=== PATIENT | female | born 1960 | race African-American/Black ===

== ENCOUNTER 2018-06-11 14:23 | Emergency (ER) | payer OTHER ==
--- NOTE | 2018-06-11 16:26 | RAD REPORT ---
EXAM DESCRIPTION: RAD - Lumbar Spine 3 Views - 06/11/2018 4:03 pm CLINICAL HISTORY: PAIN Radiculopathy COMPARISON: No comparisons FINDINGS: Vertebral body heights appear maintained. No compression fracture noted. Disc spaces are m aintained. Minimal degenerative anterolisthesis of L4 on 5 is noted. Facet hypertrophy is present inv olving the lower lumbar levels. IMPRESSION: No acute finding is demonstrated. Mild lower lumbar spondylosis.
--- NOTE | 2018-06-11 16:36 | RAD REPORT ---
EXAM DESCRIPTION: US - Extremity Venous Uni Ltd - 06/11/2018 4:31 pm CLINICAL HISTORY: PAIN Leg swelling and edema. COMPARISON: No comparisons FINDINGS: Right lower extremity venous system was interrogated with Doppler technique. Normal flow, compressibility and augmentation was noted. There is no DVT present. IMPRESSION: No evidence of right lower extremity deep venous thrombosis.
--- NOTE | 2018-06-11 16:40 | EDPHYS ---
Physician Documentation [facility] Name: Thais Coe Age: 58 yrs Sex: Female : 1960 Arrival Date: 06/11/2018 Time: 14:26 Bed Treatment Private MD: Juan Gee H ED Physician Rodolfo Bravo HPI: 06/11 15:38 This 58 yrs old Black Female presents to ER via Ambulatory with complaints of Leg Pain. cp 15:38 The patient presents with pain, tenderness. The complaints affect the right leg. cp 15:38 Onset: The symptoms/episode began/occurred 3 week(s) ago. cp 15:38 Associated signs and symptoms: Pertinent positives: low back pain, Pertinent negatives cp fever, numbness, warmth, weakness. Severity of symptoms: in the emergency department the symptoms are unchanged, despite home interventions. The patient has been recently seen by a physician: Dr. Gee with similar presenting complaints, given RX for muscle relaxer. Historical: - Allergies: 15:03 No Known Allergies; sg - Home Meds: 15:03 unknown high blood pressure medication [Active]; sg - PMHx: 15:03 Hypertension; sg - PSHx: 15:03 None; sg - Immunization history:: Adult Immunizations up to date. - Social history:: Smoking status: Patient/guardian denies using tobacco. - Ebola Screening: : Patient negative for fever greater than or equal to 101.5 degrees Fahrenheit, and additional compatible Ebola Virus Disease symptoms Patient denies exposure to infectious person Patient denies travel to an Ebola-affected area in the 21 days before illness onset No symptoms or risks identified at this time. ROS: 15:45 Constitutional: Negative for body aches, chills, fever, poor PO intake. cp 15:45 Eyes: Negative for injury, pain, redness, and discharge. cp 15:45 Neck: Negative for pain with movement, pain at rest, stiffness, tenderness. 15:45 Cardiovascular: Negative for chest pain. 15:45 Respiratory: Negative for cough, wheezing. 15:45 Abdomen/GI: Negative for abdominal pain, nausea, vomiting, and diarrhea, constipation, black/tarry stool, rectal bleeding. 15:45 Back: Positive for pain at rest, pain with movement, of the lumbar area and right low back, Negative for injury or acute deformity, decreased range of motion. 15:45 MS/extremity: Positive for pain, tenderness, of the right leg, Negative for injury or acute deformity, decreased range of motion, paresthesias. 15:45 Skin: Negative for cellulitis, rash. 15:45 Neuro: Negative for dizziness, headache, numbness, tingling, weakness. 15:45 All other systems are negative. Exam: 15:52 Constitutional: The patient appears in no acute distress, alert, awake, cp non-diaphoretic, non-toxic, well developed, well nourished, overweight 15:52 Head/Face: Normocephalic, atraumatic. cp 15:52 Eyes: Periorbital structures: appear normal, Conjunctiva: normal, no exudate, no injection, Sclera: no appreciated abnormality, Lids and lashes: appear normal, bilaterally. 15:52 ENT: External ear(s): are unremarkable, Nose: is normal, Mouth: is normal, Posterior pharynx: is normal, airway is patent, no erythema, no exudate, Voice: is normal. 15:52 Neck: ROM/movement: is normal, is supple, without pain, no range of motions limitations, no nuchal rigidity. 15:52 Chest/axilla: Inspection: normal, Palpation: is normal, no crepitus, no tenderness. 15:52 Cardiovascular: Rate: normal, Rhythm: regular, Edema: is not appreciated. 15:52 Respiratory: the patient does not display signs of respiratory distress, Respirations: normal, no use of accessory muscles, no retractions, no splinting, no tachypnea. 15:52 Abdomen/GI: Exam negative for discomfort, distension, guarding, Inspection: obese 15:52 Back: pain, that is moderate, of the lumbar area and right low back, Straight leg raises: of both lower extremities does not illicit pain. 15:52 Skin: cellulitis, is not appreciated, no rash present. 15:52 Neuro: Orientation: to person, place \T\ time. Mentation: is normal, Motor: moves all fours, strength is normal, Sensation: no obvious gross deficits, Gait: is steady, Deep tendon reflexes are 2+ (normal) in the right patellar, right Achilles, left patellar and left Achilles. Vital Signs: 15:03 BP 157 / 94; Pulse 89; Resp 18; Temp 97.7; Pulse Ox 100% ; Weight 99.79 kg (R); Height sg 5 ft. 6 in. (167.64 cm); Pain 4/10; 15:03 Body Mass Index 35.51 (99.79 kg, 167.64 cm) sg MDM: 15:19 Patient medically screened. cp 15:45 Differential diagnosis: sciatica, spinal stenosis, bulging disc, cauda equina. cp 16:40 Data reviewed: vital signs, nurses notes, radiologic studies, plain films, ultrasound. cp 16:40 Test interpretation: by ED physician or midlevel provider: plain radiologic studies. cp Counseling: I had a detailed discussion with the patient and/or guardian regarding: the historical points, exam findings, and any diagnostic results supporting the discharge/admit diagnosis, radiology results, the need for outpatient follow up, a family practitioner, to return to the emergency department if symptoms worsen or persist or if there are any questions or concerns that arise at home. Response to treatment: the patient's symptoms have mildly improved after treatment, and as a result, I will discharge patient. 06/11 15:34 Order name: Lumbar Spine (3 Views) XRAY; Complete Time: 16:39 cp 06/11 15:34 Order name: US Extremity Venous Unilateral Ltd; Complete Time: 16:39 cp 06/11 16:39 Interpretation: Report reviewed. cp Administered Medications: 16:54 Drug: TORadol 60 mg Route: IM; Site: left gluteus; iw Disposition: 18:36 Co-signature as Attending Physician, Rodolfo Bravo MD. Disposition: 06/11/18 16:40 Discharged to Home. Impression: Low back pain, Radiculopathy, lumbar region. - Condition is Stable. - Discharge Instructions: Back Pain, Adult, Lumbosacral Radiculopathy. - Prescriptions for Ultracet 37.5- 325 mg Oral Tablet - take 1 tablet by ORAL route every 6 hours - for up to 5 days; do not exceed 8 tablets per day. no driving while taking medication; 20 tablet. Medrol (Enmanuel) 4 mg Oral Tablets, Dose Pack - take 1 tablet by ORAL route as directed - follow package instructions; 1 packet. - Medication Reconciliation Form, Thank You Letter, Antibiotic Education, Prescription Opioid Use form. - Follow up: Gee, Svetlana-Jason, DO; When: 2 - 3 days; Reason: Recheck today's complaints. - Problem is an ongoing problem. - Symptoms have improved. Signatures: Dispatcher [employer] EDMS Roderick Sarabia RN RN sg Vicky Gabriel RN RN iw Werner Perez PA PA cp Leal, Jahala, RN RN jl7 Rodolfo Bravo MD MD gs Corrections: (The following items were deleted from the chart) 16:47 15:34 Urine Dipstick-Ancillary ordered. [facility] 16:47 15:34 Urine Test ordered. [facility] 17:03 16:40 06/11/2018 16:40 Discharged to Home. Impression: Low back pain; Radiculopathy, jl7 lumbar region. Condition is Stable. Forms are Medication Reconciliation Form, Thank You Letter, Antibiotic Education, Prescription Opioid Use. Follow up: Juan Gee; When: 2 - 3 days; Reason: Recheck today's complaints. Problem is an ongoing problem. Symptoms have improved. cp
--- NOTE | 2018-06-11 16:40 | ER ---
Nurse's Notes [facility] Name: Thais Coe Age: 58 yrs Sex: Female : 1960 Arrival Date: 06/11/2018 Time: 14:26 Bed Treatment Private MD: Juan Gee H Diagnosis: Low back pain;Radiculopathy, lumbar region Presentation: 06/11 15:01 Presenting complaint: Patient states: Right side arm and leg stiffening, denies sg fall/injury to the area. pt reports seeing and given a prescription for muscle relaxers but no relief. Transition of care: patient was not received from another setting of care. Onset of symptoms was June 11, 2018. Risk Assessment: Do you want to hurt yourself or someone else? Patient reports no desire to harm self or others. Care prior to arrival: None. 15:01 Method Of Arrival: Ambulatory sg 15:01 Acuity: KIMBERLEE 4 sg 15:15 Initial Sepsis Screen: Does the patient meet any 2 criteria? No. Patient's initial iw sepsis screen is negative. Does the patient have a suspected source of infection? No. Patient's initial sepsis screen is negative. Triage Assessment: 16:00 General: Appears in no apparent distress. Behavior is calm, cooperative. iw Historical: - Allergies: 15:03 No Known Allergies; sg - Home Meds: 15:03 unknown high blood pressure medication [Active]; sg - PMHx: 15:03 Hypertension; sg - PSHx: 15:03 None; sg - Immunization history:: Adult Immunizations up to date. - Social history:: Smoking status: Patient/guardian denies using tobacco. - Ebola Screening: : Patient negative for fever greater than or equal to 101.5 degrees Fahrenheit, and additional compatible Ebola Virus Disease symptoms Patient denies exposure to infectious person Patient denies travel to an Ebola-affected area in the 21 days before illness onset No symptoms or risks identified at this time. Screenin:15 Abuse screen: Denies threats or abuse. Denies injuries from another. Nutritional iw screening: No deficits noted. Tuberculosis screening: No symptoms or risk factors identified. Fall Risk None identified. Assessment: 16:00 General: Appears in no apparent distress. comfortable, Behavior is calm, cooperative. iw Pain: Complains of pain in right leg. Neuro: Level of Consciousness is awake, alert, obeys commands, Oriented to person, place, time, Moves all extremities. Full function. Cardiovascular: Patient's skin is warm and dry. Respiratory: Respiratory effort is even, unlabored, Respiratory pattern is regular, symmetrical. GI: No signs and/or symptoms were reported involving the gastrointestinal system. Derm: Skin is intact, is healthy with good turgor. Musculoskeletal: Range of motion: intact in all extremities, Reports pain in right leg. Vital Signs: 15:03 BP 157 / 94; Pulse 89; Resp 18; Temp 97.7; Pulse Ox 100% ; Weight 99.79 kg (R); Height sg 5 ft. 6 in. (167.64 cm); Pain 4/10; 15:03 Body Mass Index 35.51 (99.79 kg, 167.64 cm) sg ED Course: 14:26 Patient arrived in ED. rg4 14:26 Juan Gee DO is Private Physician. rg4 15:02 Triage completed. sg 15:02 Arm band placed on. sg 15:05 Vicky Gabriel, JANNIE is Primary Nurse. iw 15:18 Werner Perez PA is PHCP. cp 15:18 Rodolfo Bravo MD is Attending Physician. cp 16:00 X-ray completed. Patient tolerated procedure well. tm4 16:01 Lumbar Spine (3 Views) XRAY In Process Unspecified. EDMS 16:15 Patient has correct armband on for positive identification. iw 16:29 Ultrasound completed. Patient tolerated well. sg3 16:31 US Extremity Venous Unilateral Ltd In Process Unspecified. EDMS 16:39 Juan Gee DO is Referral Physician. cp 17:00 No provider procedures requiring assistance completed. Patient did not have IV access iw during this emergency room visit. Administered Medications: 16:54 Drug: TORadol 60 mg Route: IM; Site: left gluteus; iw Outcome: 16:40 Discharge ordered by . cp 17:02 Discharged to home ambulatory. iw 17:02 Condition: good 17:02 Discharge instructions given to patient, Instructed on discharge instructions, follow up and referral plans. medication usage, Demonstrated understanding of instructions, follow-up care, medications, Prescriptions given X 2. 17:03 Patient left the ED. jl7 Signatures: Dispatcher [employer] EDMS Roderick Sarabia RN RN sg Dillon, Denise tm4 Vicky Gabriel, RN RN iw Werner Perez PA PA cp Garcia, Rubi rg4 Yamileth Finnegan RN RN jl7 Mike, Rosy sg3
[2018-06-11] MEDS ORDERED: KETOROLAC 30 MG/ML INJ ONE (16:55)
[2018-06-11 17:06] VITALS: BP 157/94; TEMP 97.7; O2SAT 100
== END 2018-06-11 17:03 | disposition home or self-care (01) ==
LOC: ER 14:23
DX: M54.16 Radiculopathy, lumbar region (principal); I10 Essential (primary) hypertension
CPT/HCPCS: 72100; 93971; 96372; 99283

== ENCOUNTER 2019-01-09 13:04 | Emergency (ER) | payer OTHER ==
--- NOTE | 2019-01-09 14:48 | ER ---
Nurse's Notes [facility] Name: Thais Coe Age: 58 yrs Sex: Female : 1960 Arrival Date: 01/09/2019 Time: 13:06 Bed 24 Private MD: Juan Gee H Diagnosis: Acute upper respiratory infection, unspecified Presentation: 01/09 13:08 Presenting complaint: Patient states: i have a sore throat it started 2 days ago, it tw2 feels like a cold in my chest, dry cough, body aches. Transition of care: patient was not received from another setting of care. Onset of symptoms was January 09, 2019. Risk Assessment: Do you want to hurt yourself or someone else? Patient reports no desire to harm self or others. Initial Sepsis Screen: Does the patient meet any 2 criteria? No. Patient's initial sepsis screen is negative. Does the patient have a suspected source of infection? No. Patient's initial sepsis screen is negative. Care prior to arrival: None. 13:08 Method Of Arrival: Ambulatory tw2 13:08 Acuity: KIMBERLEE 4 tw2 Triage Assessment: 13:09 General: Appears in no apparent distress. well groomed, Behavior is calm, cooperative, tw2 appropriate for age. Pain: Complains of pain in body aches. EENT: Reports cough. Historical: - Home Meds: 13:10 unknown high blood pressure medication [Active]; tw2 - PMHx: 13:10 Hypertension; tw2 - PSHx: 13:10 None; tw2 - Immunization history:: Adult Immunizations. - Social history:: Smoking status: Patient/guardian denies using tobacco. - Ebola Screening: : Patient denies travel to an Ebola-affected area in the 21 days before illness onset. Screenin:35 Abuse screen: Denies threats or abuse. Denies injuries from another. Nutritional aj1 screening: No deficits noted. Tuberculosis screening: No symptoms or risk factors identified. 14:58 Fall Risk None identified. aj1 Assessment: 13:33 General: Appears in no apparent distress. comfortable, Behavior is calm, cooperative, aj1 appropriate for age. Neuro: Level of Consciousness is awake, alert, obeys commands, Oriented to person, place, time, situation. Cardiovascular: Patient's skin is warm and dry. Respiratory: Reports cough that is dry, persistent Airway is patent Respiratory effort is even, unlabored, Respiratory pattern is regular, symmetrical. GI: No signs and/or symptoms were reported involving the gastrointestinal system. : No signs and/or symptoms were reported regarding the genitourinary system. EENT: Reports sore throat, states that he throat feels dry and she feels like she can't cough up all the mucus. Patient reports that she tried taking NyQuil, but had a hard time swallowing the capsules. Patient has not been taking any other OTC remedy. Patient states that she has an appointment with her doctor on January 16, but she doesn't feel like she can wait that long. Derm: Skin is pink, warm \T\ dry. Musculoskeletal: Circulation, motion, and sensation intact. 14:11 Reassessment: Patient appears in no apparent distress at this time. No changes from aj1 previously documented assessment. Patient and/or family updated on plan of care and expected duration. Pain level reassessed. Patient is alert, oriented x 3, equal unlabored respirations, skin warm/dry/pink. EENT: Throat is reddened bilaterally. Vital Signs: 13:08 BP 113 / 92; Pulse 84; Resp 17; Temp 96.8(TE); Pulse Ox 99% on R/A; Weight 101.15 kg tw2 (R); Height 5 ft. 6 in. (167.64 cm) (R); Pain 8/10; 13:08 Body Mass Index 35.99 (101.15 kg, 167.64 cm) tw2 ED Course: 13:06 Patient arrived in ED. mr 13:06 Juan Gee DO is Private Physician. mr 13:08 Triage completed. tw2 13:09 Arm band placed on. tw2 13:14 Alexsandra De Luna, RN is Primary Nurse. aj1 13:35 Patient has correct armband on for positive identification. Bed in low position. Call aj1 light in reach. Side rails up X 1. 13:35 No provider procedures requiring assistance completed. aj1 13:36 Sindy Greenfield FNP-C [facility]. snw 13:36 Eleazar Handy MD is Attending Physician. snw 14:15 Flu and/or RSV swab sent to lab. Strep swab sent to lab. aj1 14:47 Juan Gee DO is Referral Physician. snw 14:57 Patient did not have IV access during this emergency room visit. aj1 Administered Medications: 14:57 Drug: predniSONE 40 mg Route: PO; aj1 14:57 Follow up: Response: No adverse reaction aj1 14:57 Drug: Pepcid 20 mg Route: PO; aj1 14:57 Follow up: Response: No adverse reaction aj1 Outcome: 14:47 Discharge ordered by MD. snw 14:58 Discharged to home ambulatory. aj1 14:58 Condition: good 14:58 Discharge instructions given to patient, Instructed on discharge instructions, follow up and referral plans. medication usage, Demonstrated understanding of instructions, follow-up care, medications, Prescriptions given X 3. 15:00 Patient left the ED. aj1 Signatures: Alexsandra De Luna, RN RN aj1 Sindy Greenfield, FOOD ORDER DELIVERY RUNNER-C FOOD ORDER DELIVERY RUNNER-Csnw Rina Che Tara, RN RN tw2
--- NOTE | 2019-01-09 14:49 | EDPHYS ---
Physician Documentation [facility] Name: Thais Coe Age: 58 yrs Sex: Female : 1960 Arrival Date: 01/09/2019 Time: 13:06 Bed 24 Private MD: Juan Gee H ED Physician Eleazar Handy HPI: 01/09 14:14 This 58 yrs old Black Female presents to ER via Ambulatory with complaints of Sore snw Throat, Cough. 14:14 The patient presents with sore throat, dysphagia, of both solids and liquids. The snw patient describes throat pain as raw, scratchy. Onset: The symptoms/episode began/occurred suddenly, 2 day(s) ago, and became persistent. Severity of symptoms: At their worst the symptoms were moderate. Modifying factors: The symptoms are alleviated by nothing, the symptoms are aggravated by cough. Associated signs and symptoms: The patient has no apparent associated signs or symptoms. It is unknown whether or not the patient has had similar symptoms in the past. The patient has not recently seen a physician. generalized malaise. Historical: - Home Meds: 13:10 unknown high blood pressure medication [Active]; tw2 - PMHx: 13:10 Hypertension; tw2 - PSHx: 13:10 None; tw2 - Immunization history:: Adult Immunizations. - Social history:: Smoking status: Patient/guardian denies using tobacco. - Ebola Screening: : Patient denies travel to an Ebola-affected area in the 21 days before illness onset. ROS: 14:11 Constitutional: Negative for fever, chills, and weight loss, Eyes: Negative for injury, snw pain, redness, and discharge, Neck: Negative for injury, pain, and swelling, Cardiovascular: Negative for chest pain, palpitations, and edema, Abdomen/GI: Negative for abdominal pain, nausea, vomiting, diarrhea, and constipation, Back: Negative for injury and pain, : Negative for injury, bleeding, discharge, and swelling, MS/Extremity: Negative for injury and deformity, Skin: Negative for injury, rash, and discoloration, Neuro: Negative for headache, weakness, numbness, tingling, and seizure. 14:11 ENT: Positive for ear pain, sore throat. 14:11 Respiratory: Positive for cough, with no reported sputum. Exam: 14:11 Constitutional: This is a well developed, well nourished patient who is awake, alert, snw and in no acute distress. Head/Face: Normocephalic, atraumatic. Eyes: Pupils equal round and reactive to light, extra-ocular motions intact. Lids and lashes normal. Conjunctiva and sclera are non-icteric and not injected. Cornea within normal limits. Periorbital areas with no swelling, redness, or edema. Neck: Trachea midline, no thyromegaly or masses palpated, and no cervical lymphadenopathy. Supple, full range of motion without nuchal rigidity, or vertebral point tenderness. No Meningismus. Chest/axilla: Normal chest wall appearance and motion. Nontender with no deformity. No lesions are appreciated. Cardiovascular: Regular rate and rhythm with a normal S1 and S2. No gallops, murmurs, or rubs. Normal PMI, no JVD. No pulse deficits. Abdomen/GI: Soft, non-tender, with normal bowel sounds. No distension or tympany. No guarding or rebound. No evidence of tenderness throughout. Back: No spinal tenderness. No costovertebral tenderness. Full range of motion. Skin: Warm, dry with normal turgor. Normal color with no rashes, no lesions, and no evidence of cellulitis. MS/ Extremity: Pulses equal, no cyanosis. Neurovascular intact. Full, normal range of motion. Neuro: Awake and alert, GCS 15, oriented to person, place, time, and situation. Cranial nerves II-XII grossly intact. Motor strength 5/5 in all extremities. Sensory grossly intact. Cerebellar exam normal. Normal gait. Psych: Awake, alert, with orientation to person, place and time. Behavior, mood, and affect are within normal limits. 14:11 ENT: TM's: are normal, Nose: is normal, Mouth: is normal, Posterior pharynx: is normal, Voice: is hoarse. 14:11 Respiratory: Exam negative for acute changes, mild cough. Vital Signs: 13:08 BP 113 / 92; Pulse 84; Resp 17; Temp 96.8(TE); Pulse Ox 99% on R/A; Weight 101.15 kg tw2 (R); Height 5 ft. 6 in. (167.64 cm) (R); Pain 8/10; 13:08 Body Mass Index 35.99 (101.15 kg, 167.64 cm) tw2 MDM: 14:16 Patient medically screened. snw 14:49 Data reviewed: vital signs, nurses notes. Data interpreted: Pulse oximetry: on room air snw is 99 %. Interpretation: normal. Counseling: I had a detailed discussion with the patient and/or guardian regarding: the historical points, exam findings, and any diagnostic results supporting the discharge/admit diagnosis, the presence of at least one elevated blood pressure reading (>120/80) during this emergency department visit, lab results, the need for outpatient follow up, to return to the emergency department if symptoms worsen or persist or if there are any questions or concerns that arise at home. Response to treatment: There is no appreciated change of the patient's symptoms at this time. Special discussion: Based on the history and exam findings, there is no indication for further emergent testing or inpatient evaluation. I discussed with the patient/guardian the need to see the primary care provider for further evaluation of the symptoms. 01/09 13:50 Order name: Flu; Complete Time: 14:45 snw 01/09 13:50 Order name: Strep; Complete Time: 14:45 snw 01/09 14:44 Order name: Throat Culture EDMS Administered Medications: 14:57 Drug: predniSONE 40 mg Route: PO; aj1 14:57 Follow up: Response: No adverse reaction aj1 14:57 Drug: Pepcid 20 mg Route: PO; aj1 14:57 Follow up: Response: No adverse reaction aj1 Disposition: 20:39 Co-signature as Attending Physician, Eleazar Handy MD Available for consultation at ps1 all times . Disposition: 01/09/19 14:47 Discharged to Home. Impression: Acute upper respiratory infection, unspecified. - Condition is Stable. - Discharge Instructions: Upper Respiratory Infection, Adult, Cool Mist Vaporizer, Rehydration, Adult. - Prescriptions for Tessalon Perles 100 mg Oral Capsule - take 1 capsule by ORAL route every 8 hours As needed; 15 capsule. Medrol (Enmanuel) 4 mg Oral Tablets, Dose Pack - take 1 tablet by ORAL route as directed - follow package instructions; 1 packet. Pepcid 20 mg Oral Tablet - take 1 tablet by ORAL route once daily; 20 tablet. - Work release form, Medication Reconciliation Form, Thank You Letter, Antibiotic Education, Prescription Opioid Use form. - Follow up: Emergency Department; When: As needed; Reason: Worsening of condition. Follow up: Juan Gee DO; When: 2 - 3 days; Reason: Recheck today's complaints, Continuance of care, Re-evaluation by your physician. Signatures: Dispatcher [employer] EDAlexsandra Peters RN RN aj1 Sindy Greenfield, KILN OPERATOR-C KILN OPERATOR-Csnw Rosa Isidro RN RN tw2 Eleazar Handy MD MD ps1 Corrections: (The following items were deleted from the chart) 15:00 14:47 01/09/2019 14:47 Discharged to Home. Impression: Acute upper respiratory aj1 infection, unspecified. Condition is Stable. Forms are Medication Reconciliation Form, Thank You Letter, Antibiotic Education, Prescription Opioid Use. Follow up: Emergency Department; When: As needed; Reason: Worsening of condition. Follow up: Juan Gee; When: 2 - 3 days; Reason: Recheck today's complaints, Continuance of care, Re-evaluation by your physician. snw
[2019-01-09] MEDS ORDERED: FAMOTIDINE 20 MG TAB ONE (15:03)
[2019-01-09] MEDS ORDERED: predniSONE 20 MG TAB ONE (15:03)
[2019-01-09 15:13] VITALS: BP 113/92; TEMP 96.8; O2SAT 99
== END 2019-01-09 15:00 | disposition home or self-care (01) ==
LOC: ER 13:04
DX: J06.9 Acute upper respiratory infection, unspecified (principal); I10 Essential (primary) hypertension
CPT/HCPCS: 87070; 87081; 87804; 99283; J7512

== ENCOUNTER 2019-12-25 16:26 | Emergency (ER) | payer OTHER ==
--- NOTE | 2019-12-25 17:15 | ER ---
Nurse's Notes [facility] Name: Thais Coe Age: 59 yrs Sex: Female : 1960 Arrival Date: 12/25/2019 Time: 16:29 Bed 7 Private MD: Juan Gee H Diagnosis: Cough Presentation: 12/24 16:40 Chief complaint: Patient states: Cough x 4 days. Denies fever. Denies SOB. Coronavirus ca1 screen: Surgical mask placed on patient. Patient moved to private room, placed in contact and droplet isolation with eye protection until further assessment. Patient reports a cough. Patient denies shortness of breath or difficulty breathing. Patient denies measured and/or subjective temperature greater than 100.4F prior to today's visit. Patient denies travel on a cruise ship or to a country the [facility] currently lists as an affected area. Patient denies contact with known and/or suspected case of COVID-19. Ebola Screen: Patient negative for fever greater than or equal to 101.5 degrees Fahrenheit, and additional compatible Ebola Virus Disease symptoms Patient denies exposure to infectious person. Patient denies travel to an Ebola-affected area in the 21 days before illness onset. No symptoms or risks identified at this time. Initial Sepsis Screen: Does the patient meet any 2 criteria? No. Patient's initial sepsis screen is negative. Does the patient have a suspected source of infection? No. Patient's initial sepsis screen is negative. Risk Assessment: Do you want to hurt yourself or someone else? Patient reports no desire to harm self or others. Onset of symptoms was December 25, 2019. 16:40 Method Of Arrival: Ambulatory ca1 16:40 Acuity: KIMBERLEE 4 ca1 Historical: - Allergies: 16:43 No Known Allergies; ca1 - Home Meds: 16:43 unknown high blood pressure medication [Active]; ca1 - PMHx: 16:43 Hypertension; Asthma; ca1 - PSHx: 16:43 None; ca1 - Immunization history:: Adult Immunizations up to date, Flu vaccine is up to date. - Social history:: Smoking status: Patient denies any tobacco usage or history of. Screenin:30 Abuse screen: Denies threats or abuse. Denies injuries from another. Nutritional hb screening: No deficits noted. Tuberculosis screening: No symptoms or risk factors identified. Fall Risk None identified. Assessment: 17:15 General: Appears in no apparent distress. Behavior is calm, cooperative. Pain: Denies hb pain. Neuro: Level of Consciousness is awake, alert, obeys commands, Oriented to person, place, time, situation. 17:15 Cardiovascular: Capillary refill < 3 seconds Patient's skin is warm and dry. hb Respiratory: Reports cough that is non-productive, Airway is patent Respiratory effort is even, unlabored, Respiratory pattern is regular, symmetrical. GI: No signs and/or symptoms were reported involving the gastrointestinal system. : No signs and/or symptoms were reported regarding the genitourinary system. EENT: No signs and/or symptoms were reported regarding the EENT system. Derm: Skin is pink, warm \T\ dry. Musculoskeletal: No signs and/or symptoms reported regarding the musculoskeletal system. Vital Signs: 16:40 BP 132 / 89; Pulse 87; Resp 17 S; Temp 97.6(TE); Pulse Ox 99% on R/A; Weight 99.79 kg ca1 (R); Height 5 ft. 6 in. (167.64 cm) (R); Pain 0/10; 16:40 Body Mass Index 35.51 (99.79 kg, 167.64 cm) ca1 ED Course: 16:29 Patient arrived in ED. mr 16:29 Juan Gee DO is Private Physician. mr 16:33 Regina David FNP-C is [facility]. kb 16:33 Werner Greer MD is Attending Physician. kb 16:42 Triage completed. ca1 16:43 Arm band placed on right wrist. ca1 17:06 Chest Pa And Lat (2 Views) XRAY In Process Unspecified. EDMS 17:30 Patient has correct armband on for positive identification. Bed in low position. Call hb light in reach. 18:02 Marjorie Hu, RN is Primary Nurse. hb 18:07 No provider procedures requiring assistance completed. Patient did not have IV access hb during this emergency room visit. Administered Medications: No medications were administered Outcome: 17:14 Discharge ordered by . kb 18:07 Discharged to home ambulatory. hb 18:07 Condition: stable 18:07 Discharge instructions given to patient, Instructed on discharge instructions, follow up and referral plans. medication usage, Demonstrated understanding of instructions, follow-up care, medications. 18:07 Patient left the ED. hb Signatures: Dispatcher [employer] EDMS Regina David, ITA ROSALES-Rina Horner Heather, RN RN Joie Tolliver RN RN ca1
--- NOTE | 2019-12-25 17:15 | EDPHYS ---
Physician Documentation [facility] Name: Thais Coe Age: 59 yrs Sex: Female : 1960 Arrival Date: 12/25/2019 Time: 16:29 Bed 7 Private MD: Juan Gee H ED Physician Werner Greer HPI: 12/24 17:09 This 59 yrs old Black Female presents to ER via Ambulatory with complaints of Cough. kb 17:09 The patient or guardian reports cough, that is intermittent, described as mild, with kb productive sputum. Onset: The symptoms/episode began/occurred 4 day(s) ago. Severity of symptoms: At their worst the symptoms were mild, moderate, in the emergency department the symptoms are unchanged. Modifying factors: The symptoms are alleviated by nothing, the symptoms are aggravated by nothing. Associated signs and symptoms: Pertinent negatives: chest pain, diarrhea, ear ache, fever, nausea, rhinorrhea, sore throat, vomiting. The patient has not experienced similar symptoms in the past. The patient has not recently seen a physician. Historical: - Allergies: 16:43 No Known Allergies; ca1 - Home Meds: 16:43 unknown high blood pressure medication [Active]; ca1 - PMHx: 16:43 Hypertension; Asthma; ca1 - PSHx: 16:43 None; ca1 - Immunization history:: Adult Immunizations up to date, Flu vaccine is up to date. - Social history:: Smoking status: Patient denies any tobacco usage or history of. ROS: 17:08 Constitutional: Negative for fever, chills, and weight loss, ENT: Negative for injury, kb pain, and discharge, Neck: Negative for injury, pain, and swelling, Cardiovascular: Negative for chest pain, palpitations, and edema, Abdomen/GI: Negative for abdominal pain, nausea, vomiting, diarrhea, and constipation, Back: Negative for injury and pain, MS/Extremity: Negative for injury and deformity, Skin: Negative for injury, rash, and discoloration, Neuro: Negative for headache, weakness, numbness, tingling, and seizure. 17:08 Respiratory: Positive for cough, Negative for dyspnea on exertion, hemoptysis, orthopnea, pleurisy, shortness of breath, sputum production, wheezing. Exam: 17:08 Constitutional: This is a well developed, well nourished patient who is awake, alert, kb and in no acute distress. Head/Face: Normocephalic, atraumatic. ENT: Nares patent. No nasal discharge, no septal abnormalities noted. Tympanic membranes are normal and external auditory canals are clear. Oropharynx with no redness, swelling, or masses, exudates, or evidence of obstruction, uvula midline. Mucous membranes moist. Neck: Trachea midline, no thyromegaly or masses palpated, and no cervical lymphadenopathy. Supple, full range of motion without nuchal rigidity, or vertebral point tenderness. No Meningismus. Chest/axilla: Normal chest wall appearance and motion. Nontender with no deformity. No lesions are appreciated. Cardiovascular: Regular rate and rhythm with a normal S1 and S2. No gallops, murmurs, or rubs. Normal PMI, no JVD. No pulse deficits. Respiratory: Lungs have equal breath sounds bilaterally, clear to auscultation and percussion. No rales, rhonchi or wheezes noted. No increased work of breathing, no retractions or nasal flaring. Abdomen/GI: Soft, non-tender, with normal bowel sounds. No distension or tympany. No guarding or rebound. No evidence of tenderness throughout. Back: No spinal tenderness. No costovertebral tenderness. Full range of motion. Skin: Warm, dry with normal turgor. Normal color with no rashes, no lesions, and no evidence of cellulitis. MS/ Extremity: Pulses equal, no cyanosis. Neurovascular intact. Full, normal range of motion. Neuro: Awake and alert, GCS 15, oriented to person, place, time, and situation. Cranial nerves II-XII grossly intact. Motor strength 5/5 in all extremities. Sensory grossly intact. Cerebellar exam normal. Normal gait. Vital Signs: 16:40 BP 132 / 89; Pulse 87; Resp 17 S; Temp 97.6(TE); Pulse Ox 99% on R/A; Weight 99.79 kg ca1 (R); Height 5 ft. 6 in. (167.64 cm) (R); Pain 0/10; 16:40 Body Mass Index 35.51 (99.79 kg, 167.64 cm) ca1 MDM: 16:44 Patient medically screened. kb 17:08 Data reviewed: vital signs, nurses notes. Data interpreted: Pulse oximetry: on room air kb is 99 %. Interpretation: normal. Counseling: I had a detailed discussion with the patient and/or guardian regarding: the historical points, exam findings, and any diagnostic results supporting the discharge/admit diagnosis, radiology results, the need for outpatient follow up, a family practitioner, to return to the emergency department if symptoms worsen or persist or if there are any questions or concerns that arise at home. 12/24 16:47 Order name: Chest Pa And Lat (2 Views) XRAY; Complete Time: 17:40 kb Administered Medications: No medications were administered Disposition: 12/25/19 17:14 Discharged to Home. Impression: Cough. - Condition is Stable. - Discharge Instructions: Cough, Adult, [id number]. - Medication Reconciliation Form, Thank You Letter, Antibiotic Education, Prescription Opioid Use form. - Follow up: Emergency Department; When: As needed; Reason: Worsening of condition. Follow up: Private Physician; When: 2 - 3 days; Reason: Recheck today's complaints, Continuance of care, Re-evaluation by your physician. Addendum: 12/26/2019 19:09 Co-signature as Attending Physician, Werner Greer MD I agree with the assessment and c friedman plan of care. Signatures: Dispatcher [employer] EDRegina George, SPECIAL ASSETS OFFICER-C SPECIAL ASSETS OFFICER-CkWerner Sheridan MD MD cha Therrien, Shelly, SPECIAL ASSETS OFFICER-C SPECIAL ASSETS OFFICER-Csnw Marjorie Hu RN RN Joie Loya RN RN [facility] Corrections: (The following items were deleted from the chart) 12/24 18:07 17:14 12/25/2019 17:14 Discharged to Home. Impression: Cough. Condition is Stable. Discharge Instructions: Cough, Adult, [id number]. Forms are Medication Reconciliation Form, Thank You Letter, Antibiotic Education, Prescription Opioid Use. Follow up: Emergency Department; When: As needed; Reason: Worsening of condition. Follow up: Private Physician; When: 2 - 3 days; Reason: Recheck today's complaints, Continuance of care, Re-evaluation by your physician. kb
--- NOTE | 2019-12-25 17:16 | RAD REPORT ---
EXAM DESCRIPTION: RAD - Chest Pa And Lat (2 Views) - 12/25/2019 5:05 pm CLINICAL HISTORY: COUGH COMPARISON: AP chest January 2011 TECHNIQUE: Frontal and lateral views of the chest were obtained. FINDINGS: The lungs are clear of focal abnormality. Interstitial pattern not substantially different when adjusting for technique differences. Heart size is normal and central vasculature is within n ormal limits. No pleural effusion or pneumothorax seen. No acute bony finding noted. No aortic abn ormality. IMPRESSION: No acute cardiopulmonary process.
[2019-12-25 18:18] VITALS: BP 132/89; TEMP 97.6; O2SAT 99
== END 2019-12-25 18:07 | disposition home or self-care (01) ==
LOC: ER 16:26
DX: R05 Cough (principal); I10 Essential (primary) hypertension
CPT/HCPCS: 71046; 99283

== ENCOUNTER 2021-07-08 14:09 | Emergency (ER) | payer OTHER ==
--- NOTE | 2021-07-08 15:32 | RAD REPORT ---
EXAM DESCRIPTION: RAD - Chest Single View - 07/08/2021 3:25 pm CLINICAL HISTORY: cough Chest pain. COMPARISON: Chest Pa And Lat (2 Views) dated 12/25/2019; CHEST SINGLE VIEW dated 02/05/2011; CHEST PA AND LAT 2 VIEW dated 10/21/2010 FINDINGS: Portable technique limits examination quality. Mildly prominent interstitial lung markings seen which may represent mild interstitial bronchitis/vir al infection. The heart is normal in size. No displaced fractures.
--- NOTE | 2021-07-08 15:37 | EDPHYS ---
Physician Documentation [facility] Name: Thais Coe Age: 61 yrs Sex: Female : 1960 Arrival Date: 07/08/2021 Time: 14:11 Bed 12 Private MD: Juan Gee H ED Physician Demetris Malloy HPI: 07/08 16:11 This 61 yrs old Black Female presents to ER via Ambulatory with complaints of Cough, kb Chest Congestion. 16:11 The patient or guardian reports cough, that is intermittent, described as moderate. kb Onset: The symptoms/episode began/occurred 1 month(s) ago. Severity of symptoms: At their worst the symptoms were moderate, in the emergency department the symptoms are unchanged. Modifying factors: The symptoms are alleviated by nothing, the symptoms are aggravated by nothing. Associated signs and symptoms: The patient has no apparent associated signs or symptoms. The patient has not experienced similar symptoms in the past. The patient has not recently seen a physician. Pt states she has had a cough and congestion for a month. States she was sitting outside and someone was smoking "fake marijuana" around her so she inhaled it and has been coughing ever since. Called her PCP when it first started and was prescribed antibiotics, but still has the cough. Historical: - Allergies: 14:20 No Known Allergies; tw2 - Home Meds: 14:19 unknown high blood pressure medication [Active]; tw2 - PMHx: 14:19 Asthma; Hypertension; tw2 - PSHx: 14:19 None; tw2 - Immunization history:: Client reports receiving the 2nd dose of the Covid vaccine. - Social history:: Smoking status: Patient denies any tobacco usage or history of. ROS: 16:10 Constitutional: Negative for fever, chills, and weight loss. kb 16:10 Respiratory: Positive for cough, Negative for dyspnea on exertion, hemoptysis, orthopnea, pleurisy, shortness of breath, sputum production, wheezing. 16:10 All other systems are negative. Exam: 16:11 Constitutional: This is a well developed, well nourished patient who is awake, alert, kb and in no acute distress. Head/Face: Normocephalic, atraumatic. ENT: Moist Mucous membranes Cardiovascular: Regular rate and rhythm with a normal S1 and S2. No gallops, murmurs, or rubs. No pulse deficits. Respiratory: Respirations even and unlabored. No increased work of breathing, no retractions or nasal flaring. Skin: Warm, dry with normal turgor. Normal color. MS/ Extremity: Pulses equal, no cyanosis. Neurovascular intact. Full, normal range of motion. Neuro: Awake and alert, GCS 15, oriented to person, place, time, and situation. Moves all extremities. Normal gait. Psych: Awake, alert, with orientation to person, place and time. Behavior, mood, and affect are within normal limits. Vital Signs: 14:16 BP 135 / 110; Pulse 90; Resp 18; Temp 97.9(TE); Pulse Ox 97% on R/A; Weight 104.33 kg; tw2 Height 5 ft. 6 in. (167.64 cm); 15:04 BP 137 / 108; Pulse 89; Resp 18; Pulse Ox 98% on R/A; Pain 0/10; ld1 14:16 Body Mass Index 37.12 (104.33 kg, 167.64 cm) tw2 MDM: 14:23 Patient medically screened. kb 16:09 Data reviewed: vital signs, nurses notes. Data interpreted: Pulse oximetry: on room air kb is 98 %. Interpretation: normal. Counseling: I had a detailed discussion with the patient and/or guardian regarding: the historical points, exam findings, and any diagnostic results supporting the discharge/admit diagnosis, radiology results, the need for outpatient follow up, a family practitioner, to return to the emergency department if symptoms worsen or persist or if there are any questions or concerns that arise at home. 07/08 14:24 Order name: Chest Single View XRAY kb 07/08 15:33 Order name: RAD; Complete Time: 15:35 EDMS Administered Medications: No medications were administered Disposition: 07/09 08:28 Co-signature as Attending Physician, Demetris Malloy MD I agree with the assessment and rn plan of care. Attestation: The patient's history, exam findings, diagnostics, and a summary of any interventions or procedures was reviewed in detail with Regina JEAN BAPTISTE. Disposition Summary: 07/08/21 15:36 Discharge Ordered Location: Home kb Condition: Stable kb Diagnosis - Acute bronchitis, unspecified kb Followup: kb - With: Emergency Department - When: As needed - Reason: Worsening of condition Followup: kb - With: Private Physician - When: 2 - 3 days - Reason: Recheck today's complaints, Continuance of care, Re-evaluation by your physician Discharge Instructions: - Discharge Summary Sheet kb - Acute Bronchitis, Adult, [id number] kb Forms: - Medication Reconciliation Form kb - Thank You Letter kb - Antibiotic Education kb - Prescription Opioid Use kb Prescriptions: - Prednisone 20 mg Oral Tablet - take 1 tablet by ORAL route once daily for 5 days; 5 tablet; Refills: 0, kb Product Selection Permitted - Tessalon Perles 100 mg Oral Capsule - take 1 capsule by ORAL route every 8 hours As needed; 15 capsule; Refills: 0, kb Product Selection Permitted Signatures: Dispatcher [employer] Regina Tran, ITA ROSALES-Demetris Stone MD MD rn Wise, Tara, RN RN tw2
--- NOTE | 2021-07-08 15:37 | ER ---
Nurse's Notes [facility] Name: Thais Coe Age: 61 yrs Sex: Female : 1960 Arrival Date: 07/08/2021 Time: 14:11 Bed 12 Private MD: Juan Gee H Diagnosis: Acute bronchitis, unspecified Presentation: 07/08 14:16 Chief complaint: Patient states: i got a cough and congestion. started last month. i tw2 was in my apartment on the porch and there was 8 people down smoking all kinds of stuff. i cant get rid of it. i get tested every week for Covid at my job over at [facility] [employer]. Coronavirus screen: congestion, cough unrelated to allergies, Client presents with at least one sign or symptom that may indicate coronavirus-19. Standard/surgical mask placed on the client. Provider contacted for isolation considerations. Ebola Screen: Patient denies travel to an Ebola-affected area in the 21 days before illness onset. Initial Sepsis Screen: Does the patient meet any 2 criteria? No. Patient's initial sepsis screen is negative. Does the patient have a suspected source of infection? No. Patient's initial sepsis screen is negative. Risk Assessment: Do you want to hurt yourself or someone else? Patient reports no desire to harm self or others. Onset of symptoms was July 08, 2021. 14:16 Method Of Arrival: Ambulatory tw2 14:16 Acuity: KIMBERLEE 3 tw2 Triage Assessment: 14:20 General: Appears in no apparent distress. obese, Behavior is calm, cooperative, tw2 appropriate for age. Pain: Denies pain. Historical: - Allergies: 14:20 No Known Allergies; tw2 - Home Meds: 14:19 unknown high blood pressure medication [Active]; tw2 - PMHx: 14:19 Asthma; Hypertension; tw2 - PSHx: 14:19 None; tw2 - Immunization history:: Client reports receiving the 2nd dose of the Covid vaccine. - Social history:: Smoking status: Patient denies any tobacco usage or history of. Screenin:04 Abuse screen: Denies threats or abuse. Denies injuries from another. Nutritional ld1 screening: No deficits noted. Tuberculosis screening: No symptoms or risk factors identified. Fall Risk None identified. Assessment: 15:04 General: Appears in no apparent distress. comfortable, Behavior is calm, cooperative, ld1 appropriate for age. Pain: Denies pain. Neuro: Level of Consciousness is awake, alert, obeys commands, Oriented to person, place, time, situation. Cardiovascular: Capillary refill < 3 seconds Patient's skin is warm and dry. Respiratory: Airway is patent Respiratory effort is even, unlabored, Respiratory pattern is regular, symmetrical. Respiratory: Reports cough that is. GI: Abdomen is round non-distended. : No signs and/or symptoms were reported regarding the genitourinary system. EENT: No signs and/or symptoms were reported regarding the EENT system. Derm: No signs and/or symptoms reported regarding the dermatologic system. Musculoskeletal: No signs and/or symptoms reported regarding the musculoskeletal system. Vital Signs: 14:16 BP 135 / 110; Pulse 90; Resp 18; Temp 97.9(TE); Pulse Ox 97% on R/A; Weight 104.33 kg; tw2 Height 5 ft. 6 in. (167.64 cm); 15:04 BP 137 / 108; Pulse 89; Resp 18; Pulse Ox 98% on R/A; Pain 0/10; ld1 14:16 Body Mass Index 37.12 (104.33 kg, 167.64 cm) tw2 ED Course: 14:11 Patient arrived in ED. mr 14:11 Juan Gee DO is Private Physician. mr 14:19 Triage completed. tw2 14:20 Arm band placed on. tw2 14:23 Regina David FNP-C is [facility]. kb 14:23 Demetris Malloy MD is Attending Physician. kb 15:04 Peri Woodruff, JANNIE is Primary Nurse. ld1 15:04 Patient has correct armband on for positive identification. Bed in low position. Call ld1 light in reach. Side rails up X2. Pulse ox on. NIBP on. Door closed. Noise minimized. 15:04 No provider procedures requiring assistance completed. ld1 15:48 Patient did not have IV access during this emergency room visit. ld1 Administered Medications: No medications were administered Outcome: 15:36 Discharge ordered by . kb 15:48 Discharged to home ambulatory. ld1 15:48 Condition: stable 15:48 Discharge instructions given to patient, Instructed on discharge instructions, follow up and referral plans. medication usage, Demonstrated understanding of instructions, follow-up care, medications, Prescriptions given X 2. 15:48 Patient left the ED. ld1 Signatures: Regina David FNP-C FNP-Rina Horner mr Rosa Isidro, RN RN tw2 Peri Woodruff RN RN ld1
[2021-07-08 15:52] VITALS: TEMP 97.9
[2021-07-08 15:53] VITALS: BP 137/108; O2SAT 98
== END 2021-07-08 15:48 | disposition home or self-care (01) ==
LOC: ER 14:09
DX: J20.9 Acute bronchitis, unspecified (principal); I10 Essential (primary) hypertension
CPT/HCPCS: 71045; 99283

== ENCOUNTER 2022-11-06 14:42 | Emergency (ER) | payer OTHER ==
--- NOTE | 2022-11-06 15:39 | ER ---
Nurse's Notes [facility] Name: Thais Coe Age: 62 yrs Sex: Female : 1960 Arrival Date: 11/06/2022 Time: 14:45 Bed IW1 Private MD: Juan Gee H Diagnosis: Unspecified asthma with (acute) exacerbation Presentation: 11/06 14:53 Chief complaint: Cough, congestion, pain with cough, sore throat, and headache x 1 hb week. Coronavirus screen: Client presents with at least one sign or symptom that may indicate coronavirus-19. Standard/surgical mask placed on the client. Provider contacted for isolation considerations. Ebola Screen: No symptoms or risks identified at this time. Initial Sepsis Screen: Does the patient meet any 2 criteria? No. Patient's initial sepsis screen is negative. Does the patient have a suspected source of infection? No. Patient's initial sepsis screen is negative. Risk Assessment: Do you want to hurt yourself or someone else? Patient reports no desire to harm self or others. Onset of symptoms was October 30, 2022. 14:53 Method Of Arrival: Ambulatory hb 14:53 Acuity: KIMBERLEE 4 hb Historical: - Allergies: 14:55 No Known Allergies; hb - PMHx: 14:55 Asthma; Hypertension; hb - Immunization history:: Adult Immunizations up to date. - Social history:: Smoking status: Patient denies any tobacco usage or history of. Vital Signs: 14:53 BP 148 / 82; Pulse 87; Resp 20; Temp 97.5; Pulse Ox 96% on R/A; Weight 104.33 kg; hb Height 5 ft. 6 in. (167.64 cm); Pain 0/10; 14:53 Body Mass Index 37.12 (104.33 kg, 167.64 cm) hb ED Course: 14:45 Patient arrived in ED. mr 14:45 Juan Gee DO is Private Physician. mr 14:55 Triage completed. hb 14:55 Arm band placed on. hb 14:56 Sindy Brady FNP-C is PHCP. snw 14:56 Werner Greer MD is Attending Physician. snw 15:32 Chest Pa And Lat (2 Views) XRAY In Process Unspecified. EDMS 15:37 Juan Gee DO is Referral Physician. snw Administered Medications: No medications were administered Outcome: 15:38 Discharge ordered by . snw 15:54 Discharged to home ambulatory, with significant other. hb 15:54 Condition: stable 15:54 Discharge instructions given to patient, Instructed on discharge instructions, follow up and referral plans. medication usage, Demonstrated understanding of instructions, follow-up care, medications, Prescriptions given X 5 15:55 Patient left the ED. hb Signatures: Dispatcher [employer] EDIN Sindy Brady, BELT MOLDER-C BELT MOLDER-Csnw Rina Che Heather, RN RN hb
--- NOTE | 2022-11-06 15:39 | EDPHYS ---
Physician Documentation [facility] Name: Thais Coe Age: 62 yrs Sex: Female : 1960 Arrival Date: 11/06/2022 Time: 14:45 Bed IW1 Private MD: Juan Gee H ED Physician Werner Greer HPI: 11/06 15:33 This 62 yrs old Black Female presents to ER via Ambulatory with complaints of Cough, snw Sore Throat, Headache. 15:33 The patient or guardian reports cough, flu symptoms. Onset: The symptoms/episode snw began/occurred acutely, 3 day(s) ago, and became persistent. Associated signs and symptoms: Pertinent positives: sore throat. It is unknown whether or not the patient has had similar symptoms in the past. sees Dr. Gee, insurance change, pt has not been on antihypertensives or asthma medications. Historical: - Allergies: 14:55 No Known Allergies; hb - PMHx: 14:55 Asthma; Hypertension; hb - Immunization history:: Adult Immunizations up to date. - Social history:: Smoking status: Patient denies any tobacco usage or history of. ROS: 15:32 Eyes: Negative for injury, pain, redness, and discharge. snw 15:32 Neck: Negative for injury, pain, and swelling, Cardiovascular: Negative for chest pain, palpitations, and edema. 15:32 Abdomen/GI: Negative for abdominal pain, nausea, vomiting, diarrhea, and constipation, Back: Negative for injury and pain, : Negative for injury, bleeding, discharge, and swelling, MS/Extremity: Negative for injury and deformity, Skin: Negative for injury, rash, and discoloration, Neuro: Negative for headache, weakness, numbness, tingling, and seizure, Psych: Negative for depression, anxiety, suicide ideation, homicidal ideation, and hallucinations. 15:32 Constitutional: Positive for body aches, malaise. 15:32 ENT: Positive for sinus congestion. 15:32 Respiratory: Positive for cough, wheezing. Exam: 15:31 Constitutional: This is a well developed, well nourished patient who is awake, alert, snw and in no acute distress. Head/Face: Normocephalic, atraumatic. Eyes: Pupils equal round and reactive to light, extra-ocular motions intact. Lids and lashes normal. Conjunctiva and sclera are non-icteric and not injected. Cornea within normal limits. Periorbital areas with no swelling, redness, or edema. 15:31 Neck: Trachea midline, no thyromegaly or masses palpated, and no cervical lymphadenopathy. Supple, full range of motion without nuchal rigidity, or vertebral point tenderness. No Meningismus. Chest/axilla: Normal chest wall appearance and motion. Nontender with no deformity. No lesions are appreciated. 15:31 Abdomen/GI: Soft, non-tender, with normal bowel sounds. No distension or tympany. No guarding or rebound. No evidence of tenderness throughout. Back: No spinal tenderness. No costovertebral tenderness. Full range of motion. Skin: Warm, dry with normal turgor. Normal color with no rashes, no lesions, and no evidence of cellulitis. MS/ Extremity: Pulses equal, no cyanosis. Neurovascular intact. Full, normal range of motion. Neuro: Awake and alert, GCS 15, oriented to person, place, time, and situation. Cranial nerves II-XII grossly intact. Motor strength 5/5 in all extremities. Sensory grossly intact. Cerebellar exam normal. Normal gait. 15:31 ENT: Posterior pharynx: erythema. 15:31 Cardiovascular: Rate: normal, Heart sounds: normal. 15:31 Respiratory: the patient does not display signs of respiratory distress, Respirations: normal, Breath sounds: are clear throughout, bronchitic cough. Vital Signs: 14:53 BP 148 / 82; Pulse 87; Resp 20; Temp 97.5; Pulse Ox 96% on R/A; Weight 104.33 kg; hb Height 5 ft. 6 in. (167.64 cm); Pain 0/10; 14:53 Body Mass Index 37.12 (104.33 kg, 167.64 cm) hb MDM: 14:57 Patient medically screened. nate 15:33 Differential Diagnosis: Bronchitis Influenza Upper Respiratory Infection Sinusitis snw Pharyngitis Asthma Exacerbation. Data reviewed: vital signs, nurses notes, radiologic studies. Independent interpretation of the following test(s) in the Emergency Department X-Ray: My interpretation is unchanged from previous. Care significantly affected by the following chronic conditions: Hypertension, asthma. Counseling: I had a detailed discussion with the patient and/or guardian regarding: the historical points, exam findings, and any diagnostic results supporting the discharge/admit diagnosis, the presence of at least one elevated blood pressure reading (>120/80) during this emergency department visit, radiology results, the need for outpatient follow up, for definitive care. Special discussion: Based on the history and exam findings, there is no indication for further emergent testing or inpatient evaluation. 11/06 15:11 Order name: Chest Pa And Lat (2 Views) XRAY; Complete Time: 15:41 snw Administered Medications: No medications were administered Disposition Summary: 11/06/22 15:38 Discharge Ordered Location: Home snw Condition: Stable snw Diagnosis - Unspecified asthma with (acute) exacerbation snw Followup: snw - With: Juan Gee DO - When: 1 - 2 days - Reason: Recheck today's complaints, Continuance of care, Re-evaluation by your physician Followup: snw - With: Emergency Department - When: As needed - Reason: Worsening of condition Discharge Instructions: - Discharge Summary Sheet snw - Asthma, Adult snw Forms: - Medication Reconciliation Form snw - Thank You Letter snw - Antibiotic Education snw - Prescription Opioid Use snw - Work release form snw Prescriptions: - amoxicillin-pot clavulanate 875-125 mg Oral tablet - take 1 tablet by ORAL route every 12 hours for 10 days; 20 tablet; Refills: 0, snw Product Selection Permitted - Zyrtec 10 mg Oral Tablet - take 1 tablet by ORAL route once daily As needed; 20 tablet; Refills: 0, snw Product Selection Permitted - Prednisone 20 mg Oral Tablet - take 2 tablets by ORAL route once daily for 5 days; 10 tablet; Refills: 0, snw Product Selection Permitted - albuterol sulfate 90 mcg/actuation Inhalation HFA aerosol inhaler - inhale 2 puff by INHALATION route every 4-6 hours; 1 vial; Refills: 0, Product snw Selection Permitted - Pepcid 20 mg Oral Tablet - take 1 tablet by ORAL route once daily; 20 tablet; Refills: 0, Product snw Selection Permitted Signatures: Dispatcher [employer] EDWerner Martins MD MD cha Waters, Shelly, FLASHER ADJUSTER-C FLASHER ADJUSTER-Ralphw Marjorie Hu RN RN Corrections: (The following items were deleted from the chart) 15:21 15:07 COVID-19/FLU A+B+[id number] ordered. EDMS EDMS
--- NOTE | 2022-11-06 15:40 | RAD REPORT ---
EXAM DESCRIPTION: RAD - Chest Pa And Lat (2 Views) - 11/06/2022 3:30 pm CLINICAL HISTORY: COUGH COMPARISON: 07/08/2021 FINDINGS: Lines: None. Lungs: No evidence of edema or pneumonia. Pleural: No significant pleural effusions or pneumothorax. Cardiac: The heart size is within normal limits. Mediastinum: Within normal limits. Bones: No acute fractures. Other: None IMPRESSION: No acute cardiopulmonary disease.
[2022-11-06 16:02] VITALS: BP 148/82; TEMP 97.5; O2SAT 96
== END 2022-11-06 15:55 | disposition home or self-care (01) ==
LOC: ER 14:42
DX: J45.901 Unspecified asthma with (acute) exacerbation (principal)
CPT/HCPCS: 71046; 99283

== ENCOUNTER 2023-04-23 19:16 | Emergency (ER) | payer OTHER, SELFPAY ==
--- OUTSIDE RECORDS SUMMARY | 2023-04-23 19:32 | XMS REPORT | Continuity of Care Document ---
:[address] [facility] t Address [address] [place] [address] [place] [id number] Care Team Providers Name Role Phone PCP, PATIENT DOES NOT HAVE A Primary Care Physician Unavaila ble RODOLFO MCKEON Attending Clinician Unavailable Rodolfo Mckeon MD Attending Clinician RODOLFO MCKEON Admitting Clinician Unavailable Payers Payer Name Policy Type Policy Number Effective Date Expiration Date S lizzie [employer] [id number] 2015 00:00:00 Problems This patient has no known problems. Allergies, Adverse Reactions, Alerts Allergy Allergy Status Severity Reaction(s) Onset Inactive Treating Comm ents Source Name Type Date Date Clinician NO KNOWN Drug Active Univers ALLERGIE Class ity of S [facility] Social History Social Habit Start Date Stop Date Quantity Comments Source Exposure to 2023-01-14 2023-01-24 Not sure [facility]-CoV-2 00:00:00 20:07:00 [facility] (event) [place] Tobacco use and 2022-12-21 2022-12-21 Smokeless tobacco Un iversity of exposure 00:00:00 00:00:00 non-user [facility] Alcohol intake 2022-12-21 2022-12-21 Ex-drinker [facility] 00:00:00 00:00:00 (finding) [facility] Sex Ass[birth year] At [birth year] Universit y of 00:00:00 00:00:00 [facility] Smoking Status Start Date Stop Date Source Never smoked tobacco [facility] Medications Ordered Filled Start Stop Current Ordering Indication Dosage Frequency Signature Comments Components Source Medication Medication Date Date Medication? Clinician (SIG) Name Name hydrALAZINE 2022- No 25mg 25 mg, Uni vers (APRESOLINE 5-16 05-16 Oral, ONCE i ty of ) tablet 25 03:15: 02:48 NOW, 1 Tyrel as mg 00 :00 dose, On Medical Mon Branch 01/24/23 at 2215, ROANLDO losartan-hy Yes 1{tbl} Take 1 Un rosy drochloroth 5-15 tablet by ity of iazide 23:06: mouth in [place] 100-25 mg 00 the Medical per tablet morning. [facility] losartan-hy Yes [id number] 1{tbl} Take 1 Univers drochloroth 5-15 tablet by ity of iazide 00:00: mouth in [place] 100-25 mg 00 the Medical per tablet morning. [facility] losartan-hy 2022- No [id number] 1{tbl} Take 1 Univers drochloroth 5-15 05-15 tablet by it y of iazide 00:00: 00:00 mouth in [place] 100-25 mg 00 :00 the Medical per tablet morning. [facility] iopamidol 2022- No [id number] 100mL 100 mL, Univers (ISOVUE 12-22 Intravenou ity o f 370-500 mL) 03:10: 03:00 s, ONCE, 1 [place] injection 00 :00 dose, On Medica l 100 mL e Branch 12/21/22 at 2215, Routine labetaloL 2022- No 20mg 20 mg, Unive rs (NORMODYNE) 12-22 Slow IV ity of injection 02:00: 01:45 Push, [place] 20 mg 00 :00 ONCE, 1 Medical dose, On Branch e 12/21/22 at 2100, Routine benzonatate 2022- Yes [id number] 100mg Take 1 Univers 100 mg 4-11 capsule by ity of capsule 00:00: mouth 3 [place] 00 (three) Medical times Branch daily as needed for Cough. benzonatate Yes [id number] 100mg Take 1 Univers 100 mg 4-11 capsule by ity of capsule 00:00: mouth 3 [place] 00 (three) Medical times Branch daily as needed for Cough. codeine-gua 2022- No [id number] 10mL Take 10 mL Univers ifenesin 4-11 04-19 by mouth ity of 10-100 mg/5 00:00: 04:59 every 6 [place] mL oral 00 :00 (six) Medical solution hours as Branch needed for Cough for up to 7 days. Indication s: acute pain Vital Signs Vital Name Observation Time Observation Value Comments Source Systolic blood 2023-01-25 04:29:50 149 mm[Hg] [facility]iver [facility] Diastolic blood 2023-01-25 04:29:50 97 mm[Hg] [facility] Heart rate 2023-01-25 04:29:50 80 /min [facility] Respiratory rate 2023-01-25 04:29:50 20 /min [facility] in 2023-01-25 04:29:50 99 /min University of Arterial blood by [place] [employer] stephania Pulse oximetry Branch Body temperature 2023-01-25 01:09:00 37 [facility] Body weight 2023-01-25 01:09:00 113.399 kg [facility] BMI 2023-01-25 01:09:00 40.35 kg/m2 [facility] Systolic blood 2022-12-22 03:59:00 114 mm[Hg] [facility]iver [facility] Diastolic blood 2022-12-22 03:59:00 65 mm[Hg] Unive [facility] Heart rate 2022-12-22 03:59:00 83 /min [facility] Respiratory rate 2022-12-22 03:59:00 14 /min [facility] O[facility] in 2022-12-22 03:59:00 98 /min University of Arterial blood by [place] [employer] stephania Pulse oximetry Branch Body temperature 2022-12-21 23:34:00 36.83 [facility] Body weight 2022-12-21 23:34:00 108.863 kg [facility] BMI 2022-12-21 23:34:00 38.74 kg/m2 [facility] Procedures Procedure Date / Time Performed Performing Clinician [place] XR CHEST 2 VW 2023-01-25 02:55:[address] [facility] TROPONIN I 2023-01-25 02:42:[address] [facility] BASIC METABOLIC PANEL 2023-01-25 02:42:00 Rodolfo Mckeon [facility] (NA, K, CL, CO2, Medical Branch GLUCOSE, BUN, CREATININE, CA) CBC WITH DIFF 2023-01-25 02:42:[address] [facility] N-TERMINAL PRO-BNP 2023-01-25 02:42:00 Rodolfo Mckeon [facility] CONSENT/REFUSAL FOR 2023-01-25 01:00:39 [facility], [facility] Name [facility] TREATMENT EKG-12 LEAD 2022-12-22 04:42:[address] [facility] URINALYSIS 2022-12-22 03:21:[address] [facility] MAGNESIUM 2022-12-22 01:34:[address] [facility] TROPONIN I 2022-12-22 01:34:[address] [facility] COMP. METABOLIC PANEL 2022-12-22 01:34:00 Rodolfo Mckeon [facility] [place] [facility] ([id number]) [facility] CBC WITH DIFF 2022-12-22 01:34:[address] [facility] N-TERMINAL PRO-BNP 2022-12-22 01:34:00 Rodolfo Mckeon [facility] EXTRA TUBE LT. BLUE 2022-12-22 01:34:00 Rodolfo Mckeon [facility] CONSENT/REFUSAL FOR 2022-12-21 23:15:05 Doctor Unassigned, No Un iversity [facility] DIAGNOSIS AND Name [facility] TREATMENT Encounters Start End Encounter Admission Attending Care Care Encounter Source Date/Time Date/Time Type Type Clinicians Facility Department ID 2023-03-29 2023-03-29 Outpatient [facility] Vladimir 14:28:53 14:28:53 [id number] Mckayla Vergara 2023-03-28 2023-03-28 Outpatient [facility] Vladimir 13:17:45 13:17:45 [id number] F Jai 2023-03-24 2023-03-24 Outpatient [facility] Vladimir 09:53:38 09:53:38 [id number] F Jai 2023-03-21 2023-03-21 Outpatient [facility] Vladimir 14:55:39 14:55:39 [id number] F Mccracken 2023-01-24 2023-01-24 Emergency X MIKE, [facility] ERT [id number] Univers 20:11:00 23:34:00 RODOLFO gonzalezy [facility] 2023-01-24 2023-01-24 Emergency Mike, [place] [id number] Univers 20:11:00 23[facility]34:[facility] [id number] [id number] [id number] [address] 2022-12-21 2022-12-21 Emergency X MIKE, [facility] ERT [id number] Univers 18:35:00 23:52:00 RODOLFO hinds [facility] 2022-12-21 2022-12-21 Emergency Mike, [place] [id number] Univers 18:35:00 23:52:[facility] [id number] [id number] [address] Results Test Description Test Time Test Comments Results Result Comments Source HEMOGLOBIN A1c 2023-03-25 06:27:59 Test Item Value Reference Range Interpretation Comme nts HEMOGLOBIN A1c (test code = 6.7 % 4.2-5.6 H [employer] 85266) GUIDELINES FOR HGB A1C: PREDIABETES/INC REASED RISK . . . . . . . 5.7-6.4% DIAGNO SIS OF DIABETES . . . . . . . . . >=6.5% WITH CONFIRMATION OR APPROPRIATE SYM PTOMS NOTE: ASSAY MAY BE AFFECTED BY HEM OGLOBINOPATHIES (SICKLE CELL ANEMIA, S- C DISEASE, OTHERS) OR ARTIFICIALLY LO WERED BY DECREASED RED CELL SURVIVAL ( HEMOLYTIC ANEMIAS, BLOOD LOSS, ETC.). CO NSIDER ALTERNATE TESTING OR LABORATORY C ONSULTATION. UNLESS OTHERWISE INDIC ATED, ALL TESTING PERFORMED AT [facility], [address] [place] [address] DALE ANTHONY DIRECTOR: Caridad GARCIA STEVEN NUMBER [id number] CAP ACCREDITATION N O. [id number] LIPID [id number] 03:35:43 Test Item Value Reference Range Interpretation Comments CHOLESTEROL (test 235 MG/DL <200 H code = 2210) TRIGLYCERIDES (test 95 MG/DL <150 code = 2232) HDL CHOLESTEROL (test 63 MG/DL >39 code = 2220) CALC LDL CHOL (test 152 MG/DL <100 H NOTE: C ALCULATED LDL code = 2237) IS BASED ON URBANO-VIVAR METHOD WHICHINCLUDES ADJUSTABLE TRIGLYCERIDE:VL DL CHOLESTEROL RAT IO.THIS FACTOR VARIES B Y MEASURED TRIGLY CERIDE AND NON-HDLCHOL ESTEROL CONCENTRATIONS WITH INCREASED CALCU LATED LDL SEENIN HIGH ER TRIGLYCERIDE OR LOWER NON-HDL SPECIME NS. FOR MOREINFORMATION , SEE CLIENT ANNOUNCE MENT AT [email or web address] RISK RATIO LDL/HDL 2.41 RATIO <3.22 (test code = 2238) TROPONIN [id number] 02:12:08 Test Item Value Reference Range Interpretation Comments TROPONIN I (test code = 0.003 ng/mL <=0.034 [id number]) LUIS MANUEL (test code = LUIS MANUEL) Reference (Normal) Range (defined by the 99th percentile reference limit): <= 0.034 ng/mL Note: Cardiac troponin begins to rise 3-4 hours after the onset of ischemia. Repeat in 4-6 hours if the sample was drawn within 3-4 hours of the onset of the symptom and found normal. Diagnosis of myocardial injury is made with acute changes in cTn concentrations with at least one serial sample above the 99th percentile upper reference limit (URL), taken together with the patient's clinical presentation. Biotin has been reported to cause a negative bias, interpret results relative to patient's use of biotin. Lab Interpretation Normal (test code = 50063-4) [facility] [id number] 02:12:08 Test Item Value Reference Range Interpretation Comments NT-proBNP (test code = 17 pg/mL <=125 [id number]) LUIS MANUEL (test code = LUIS MANUEL) Biotin has been reported to cause a negative bias, interpret results relative to patient's use of biotin. Lab Interpretation (test Normal code = 26623-1) [facility] (75450)2022-12-22 02:03:24 Test Item Value Reference Range Interpretation Comments NA (test code = 137 mmol/L 135-145 4937992870) K (test code = 4.2 mmol/L 3.5-5.0 4244252565) CL (test code = 102 mmol/L 98-108 7380464794) CO2 TOTAL (test code 30 mmol/L 23-31 = 9724468101) AGAP (test code = 5 2-16 2124775154) BUN (test code = 13 mg/dL 7-23 1096365094) GLUCOSE (test code = 100 mg/dL 70-110 2555576319) CREATININE (test code 0.62 mg/dL 0.50-1.04 = 6090075154) TOTAL BILI (test code 0.5 mg/dL 0.1-1.1 = 4265451005) CALCIUM (test code = 9.2 mg/dL 8.6-10.6 1335812082) T PROTEIN (test code 7.0 g/dL 6.3-8.2 = 7411524041) ALBUMIN (test code = 4.0 g/dL 3.5-5.0 8662304511) ALK PHOS (test code = 114 U/L 34-122 8778669051) ALTv (test code = 26 U/L 5-35 1742-6) AST(SGOT) (test code 23 U/L 13-40 = 1391816756) eGFR (test code = 98.2 mL/min/1.73m2 3024996491) LUIS MANUEL (test code = LUIS MANUEL) Association of Glomerular Filtration Rate (GFR) and Staging of Kidney Disease* + + +- +| GFR (mL/min/1.73 m2) ?| With Kidney Damage ?| ?Without Kidney Damage+ ------+ ----+ ------+| ?>90 ?| ?Stage one ?| ? Normal ?+ -+ + -+| ?60-89 ?| ?Stage two ?| ? Decreased GFR ? + + +- +| ?30-59 ?| ?Stage three ?| ? Stage three ? + + +- +| ?15-29 ?| ?Stage four ? | ? Stage four ?+ -+ + -+| ?<15 (or dialysis) ? ?| ?Stage five ? | ? Stage five ?+ -+ + -+ *Each stage assumes the associated GFR level has been in effect for at least three months. ?Stages 1 to 5, with or without kidney disease, indicate chronic kidney disease. Notes: Determination of stages one and two (with eGFR >59mL/min/1.73 m2) requires estimation of kidney damage for at least three months as defined by structural or functional abnormalities of the kidney, manifested by either:Pathological abnormalities or Markers of kidney damage (including abnormalities in the composition of the blood or urine or abnormalities in imaging tests). [facility]:03[facility]24 Test Item Value Reference Range Interpretation Comments MAGNESIUM (test code = 4597548146) 2.3 mg/dL 1.7-2.4 Lab Interpretation (test code = Normal 63616-6) [facility] acute hospital WITH [id number] 01:53:24 Test Item Value Reference Range Interpretation Comments WBC (test code = 13.50 See_Comment H [Automated 1676-2) message] The sy stem which generated this result transmitted reference range : 4.30 - 11.10 10*3/?L. The reference range was not used to interpret this result as normal/abnormal . RBC (test code = 4.32 See_Comment [Automated 691-1) message] The sy stem which generated this result transmitted reference range : 3.93 - 5.25 10*6/?L. The reference range was not used to interpret this result as normal/abnormal . HGB (test code = 12.5 g/dL 11.6-15.0 718-7) HCT (test code = 38.7 % 35.7-45.2 4544-3) MCV (test code = 89.6 fL 80.6-95.5 787-2) MCH (test code = 28.9 pg 25.9-32.8 785-6) MCHC (test code = 32.3 g/dL 31.6-35.1 786-4) RDW-SD (test code = 48.4 fL 39.0-49.9 81829-8) RDW-CV (test code = 14.7 % 12.0-15.5 788-0) PLT (test code = 253 See_Comment [Automated 777-3) message] The sy stem which generated this result transmitted reference range : 166 - 358 10*3/ ?L. The reference r tito was not used to interpret this result as normal/abnormal . MPV (test code = 9.5 fL 9.5-12.9 72599-3) NRBC/100 WBC (test 0.0 See_Comment [Automat ed code = 1272283420) message] The system which generated this result transmitted reference range : 0.0 - 10.0 /100 WBCs. The refer ence range was not u sed to interpret th is result as normal/abnormal . NRBC x10^3 (test code See_Comment [Auto mated = 7312838593) message] The s ystem which generated this result transmitted reference range : 10*3/?L. The reference range was not used to interpret this result as normal/abnormal . GRAN MAT (NEUT) % 63.6 % (test code = 770-8) IMM GRAN % (test code 0.40 % = 5452120398) LYMPH % (test code = 25.1 % 736-9) MONO % (test code = 9.3 % 5905-5) EOS % (test code = 1.1 % 713-8) BASO % (test code = 0.5 % 706-2) GRAN MAT x10^3(ANC) 8.58 10*3/uL 1.88-7.09 H (test code = 2612106051) IMM GRAN x10^3 (test 0.05 10*3/uL 0.00-0.06 code = 0322571994) LYMPH x10^3 (test code 3.39 10*3/uL 1.32-3.29 H = 731-0) MONO x10^3 (test code 1.26 10*3/uL 0.33-0.92 H = 742-7) EOS x10^3 (test code = 0.15 10*3/uL 0.03-0.39 711-2) BASO x10^3 (test code 0.07 10*3/uL 0.01-0.07 = 704-7) Lab Interpretation Abnormal (test code = 09354-0) [facility]"
--- NOTE | 2023-04-23 19:51 | EDPHYS ---
Physician Documentation [facility] Name: Thais Coe Age: 62 yrs Sex: Female : 1960 Arrival Date: 04/23/2023 Time: 19:16 Bed IW2 Private MD: ED Physician Chari Rachel HPI: 04/23 19:44 This 62 yrs old Black Female presents to ER via Ambulatory with complaints of Neck and sd2 Upper Back Pain. 19:44 62 yo F presents with complaint of R sided neck and upper back pain that started sd2 yesterday while she was taking a shower in the morning. Reports pain is worse when she lifts her right arm above a certain height but the pain does not shoot down her arm or into her hand and stops at her shoulder area. She denies any midline pain but points to her trapezius area and the area around her right shoulder blade. No numbness, weakness, tingling or trauma. . Historical: - Allergies: 19:34 Amoxicillin; ss - PMHx: 19:34 Asthma; Hypertension; ss - PSHx: 19:34 None; ss - Immunization history:: Adult Immunizations up to date. - Social history:: Smoking status: Patient denies any tobacco usage or history of. ROS: 19:44 Constitutional: Negative for fever, chills, and weight loss, Eyes: Negative for injury, sd2 pain, redness, and discharge, Neck: Negative for injury and swelling. Positive for pain. Cardiovascular: Negative for chest pain, palpitations, and edema, Respiratory: Negative for shortness of breath, cough, wheezing. Skin: Negative for injury, rash, and discoloration, Neuro: Negative for headache, numbness and tingling. Exam: 19:44 Constitutional: This is a well developed, well nourished patient who is awake, alert, sd2 and in no acute distress. Head/Face: Normocephalic, atraumatic. Eyes: EOMI, normal conjunctiva bilaterally Neck: Trachea midline, no thyromegaly or masses palpated, and no cervical lymphadenopathy. Supple, full range of motion without nuchal rigidity, or vertebral point tenderness. No Meningismus. TTP of the R trapezius and anterior shoulder area. Pain worse with abduction greater than 90 degrees of the R shoulder. TTP also around the lateral and inferior scapula with no associated crepitus. FROM intact. Neurovascularly intact. Chest/axilla: Normal chest wall appearance and motion. Nontender with no deformity. Back: No spinal tenderness. No costovertebral tenderness. Full range of motion. Skin: Warm, dry with normal turgor. Normal color with no rashes, no lesions, and no evidence of cellulitis. MS/ Extremity: Pulses equal, no cyanosis. Neurovascular intact. Full, normal range of motion. Ambulatory without difficulty. Neuro: Awake and alert, GCS 15, oriented to person, place, time, and situation. Cranial nerves II-XII grossly intact. Motor strength 5/5 in both upper extremities. Sensory grossly intact. Normal gait. Psych: Awake, alert, with orientation to person, place and time. Behavior, mood, and affect are within normal limits. Vital Signs: 19:33 BP 134 / 90; Pulse 80; Resp 18; Temp 98.2(O); Pulse Ox 95% on R/A; Weight 102.06 kg ss (R); Height 5 ft. 6 in. ; Pain 10/10; 19:33 Body Mass Index 36.32 (102.06 kg, 167.64 cm) ss 19:33 Pain Scale: Adult ss MDM: 19:44 Patient medically screened. sd2 19:44 Differential diagnosis: arthritis, Cervical Disc Herniation cervical strain, fracture, sd2 Spinal Cord Compression Whiplash Injury among others. Data reviewed: vital signs, nurses notes. I considered the following discharge prescriptions or medication management in the emergency department Medications were administered in the Emergency Department. See MAR. Test considered but Not performed: X-ray: No trauma or bony tenderness to indicate need for emergent imaging. Pain localized to muscular areas. . Counseling: I had a detailed discussion with the patient and/or guardian regarding: the historical points, exam findings, and any diagnostic results supporting the discharge/admit diagnosis, the need for outpatient follow up, to return to the emergency department if symptoms worsen or persist or if there are any questions or concerns that arise at home. ED course: Patient's exam is consistent with muscular strain and spasm. NO focal neuro deficits, midline tenderness or history of trauma. Pt in agreement with foregoing X-ray. Has tried Ibuprofen and lidocaine cream at home with no relief. Treated with Toradol IM and Tizanidine as well as lidocaine patch and will send home with prescriptions for similar with plan for outpatient follow up with PCP. Verbalizes understanding of discharge plan and strict return precautions. . Administered Medications: 20:15 Drug: Lidoderm Topical Patch 5 % (700 mg/patch) 1 patches Route: Topical; Site: kl affected area; 20:20 Drug: Ketorolac IM 60 mg Route: IM; Site: right deltoid; kl 20:42 Follow up: Response: No adverse reaction kl 20:20 Drug: tiZANidine PO 4 mg Route: PO; kl 20:42 Follow up: Response: No adverse reaction kl Disposition Summary: 04/23/23 19:50 Discharge Ordered Location: Home sd2 Problem: new sd2 Symptoms: have improved sd2 Condition: Stable sd2 Diagnosis - Right trapezius strain sd2 - Muscle spasm sd2 - Right shoulder pain sd2 Followup: sd2 - With: Private Physician - When: 2 - 3 days - Reason: Recheck today's complaints, Continuance of care, Re-evaluation by your physician Discharge Instructions: - Discharge Summary Sheet sd2 - Muscle Cramps and Spasms sd2 - Muscle Strain sd2 - Neck Exercises sd2 Forms: - Medication Reconciliation Form sd2 - Thank You Letter sd2 - Antibiotic Education sd2 - Prescription Opioid Use sd2 - Patient Portal Instructions sd2 - Leadership Thank You Letter sd2 Prescriptions: - Anaprox DS 550 mg Oral Tablet - take 1 tablet by ORAL route every 12 hours As needed; 20 tablet; Refills: 0, sd2 Product Selection Permitted - Zanaflex 4 mg Oral Tablet - take 1 tablet by ORAL route every 8 hours As needed; 15 tablet; Refills: 0, sd2 Product Selection Permitted Signatures: Temi Torres RN Alize Orta RN RN Chari Rachel MD MD sd2
--- NOTE | 2023-04-23 19:51 | ER ---
Nurse's Notes [facility] Name: Thais Coe Age: 62 yrs Sex: Female : 1960 Arrival Date: 04/23/2023 Time: 19:16 Bed IW2 Private MD: Diagnosis: Right trapezius strain;Muscle spasm;Right shoulder pain Presentation: 04/23 19:33 Chief complaint: Patient states: woke up with right neck pain yesterday am reports no ss improvement with ibuprofen. Coronavirus screen: Vaccine status: Patient reports receiving the 2nd dose of the covid vaccine. Ebola Screen: Patient negative for fever greater than or equal to 101.5 degrees Fahrenheit, and additional compatible Ebola Virus Disease symptoms. Initial Sepsis Screen: Does the patient meet any 2 criteria? No. Patient's initial sepsis screen is negative. Does the patient have a suspected source of infection? No. Patient's initial sepsis screen is negative. Risk Assessment: Do you want to hurt yourself or someone else? Patient reports no desire to harm self or others. Onset of symptoms was April 22, 2023 at 08:00. 19:33 Method Of Arrival: Ambulatory ss 19:33 Acuity: KIMBERLEE 4 ss Triage Assessment: 19:35 General: Appears uncomfortable, Behavior is calm, cooperative. Pain: Complains of pain ss in right sternocleidomastoid Pain currently is 10 out of 10 on a pain scale. EENT: No deficits noted. Neuro: No deficits noted. Cardiovascular: No deficits noted. Respiratory: No deficits noted. GI: No deficits noted. No signs and/or symptoms were reported involving the gastrointestinal system. : No deficits noted. No signs and/or symptoms were reported regarding the genitourinary system. Derm: No deficits noted. No signs and/or symptoms reported regarding the dermatologic system. Musculoskeletal:. Historical: - Allergies: 19:34 Amoxicillin; ss - PMHx: 19:34 Asthma; Hypertension; ss - PSHx: 19:34 None; ss - Immunization history:: Adult Immunizations up to date. - Social history:: Smoking status: Patient denies any tobacco usage or history of. Vital Signs: 19:33 BP 134 / 90; Pulse 80; Resp 18; Temp 98.2(O); Pulse Ox 95% on R/A; Weight 102.06 kg ss (R); Height 5 ft. 6 in. ; Pain 10/10; 19:33 Body Mass Index 36.32 (102.06 kg, 167.64 cm) 19:33 Pain Scale: Adult ED Course: 19:19 Patient arrived in ED. kj1 19:21 Chari Rachel MD is Attending Physician. sd2 19:34 Triage completed. ss Administered Medications: 20:15 Drug: Lidoderm Topical Patch 5 % (700 mg/patch) 1 patches Route: Topical; Site: kl affected area; 20:20 Drug: Ketorolac IM 60 mg Route: IM; Site: right deltoid; 20:42 Follow up: Response: No adverse reaction 20:20 Drug: tiZANidine PO 4 mg Route: PO; 20:42 Follow up: Response: No adverse reaction Outcome: 19:50 Discharge ordered by . sd2 20:42 Patient left the ED. Signatures: Temi Torres RN RN kl Blanchard, Shelby, RN RN Nickie David kj1 Chari Rachel MD MD sd2
[2023-04-23] MEDS ORDERED: LIDOCAINE 4% PATCH ONE (20:06)
[2023-04-23] MEDS ORDERED: KETOROLAC 30 MG/ML INJ ONE (20:06)
[2023-04-23] MEDS ORDERED: TIZANIDINE 4 MG TABLET ONE (20:40)
[2023-04-23 20:49] VITALS: BP 134/90; TEMP 98.2; O2SAT 95
== END 2023-04-23 20:42 | disposition home or self-care (01) ==
LOC: ER 19:16
DX: S46.811A Strain of other muscles, fascia and tendons at shoulder and upper arm level, right arm, initial encounter (principal); M62.838 Other muscle spasm
CPT/HCPCS: 96372; 99284; J2001

== ENCOUNTER 2024-05-17 11:59 | Emergency (ER) | payer OTHER ==
--- OUTSIDE RECORDS SUMMARY | 2024-05-17 12:02 | XMS REPORT | Continuity of Care Document ---
Author Name Unknown Address [address] [facility] [address] [place] [address] [facility] thconnect Address [address] [facility] [address] [place] [address] Care Team Providers Care Biomedical Photographer Name Role Phone Pcp, Patient Does Not Have A Primary Care Physic eris Campaigns, Generic Provider Attending Clinician Unavailable SARATH BURR Attending Clinician Unavailable SARATH BURR Attending Clinician Unavailable Sarath Maharaj Attending Clinician [phone] [email or web address]_S Attending Clinician UnavailRODOLFO Pardo Attending Clinician Unavailable Rodolfo Mckeon MD Attending Clinician [phone] SARATH BURR Admitting Clinician Unavailable [email or web address]_S Admitting Clinician UnavailRODOLFO Pardo Admitting Clinician Unavailable Payers Payer Name Policy Type Policy Number Effective Date Expirati on Date Source [employer] [id number] 2015 00:00:00 Allergies, Adverse Reactions, Alerts Allergy Name Allergy Type Status Severity Reaction(s) Onset Date Inactive Date Treating Clinician Comments Source NO KNOWN ALLERGIE S Drug Class Active [facility] Social History Social Habit Start Date Stop Date Quantity Comments Source Sexual orientation U [facility] Alcoholic beverage intake 2024-04-25 00:00:00 2024-04-25 00:00:00 Ex-drinker (finding) [facility] History of Social function 2024-04-25 00:00:00 2024-04-25 00:00:00 [facility] Exposure to SARS-CoV-2 (event) 2023-01-14 00:00:00 2023-01-24 20:07:00 Not sure [facility] Tobacco use and exposure 2022-12-21 00:00:00 2022-12-21 00:00:00 Smokeless tobacco non-user [facility] Alcohol intake 2022-12-21 00:00:00 2022-12-21 00:00:00 Ex-drinker (finding) [facility] Sex assigned at 1960 00:00:00 1960 00:00:00 [facility] Smoking Status Start Date Stop Date Source Never smoked tobacco [facility] Medications Ordered Medication Name Filled Medication Name Start Date Stop Date Current Medication? Ordering Clinician Indication Dosage Frequency Signature (SIG) Comments Components Source naproxen (NAPROSYN) tablet 500 mg 04-25 20:30: 00 04-25 20:36 :00 No 500mg 500 mg, Oral, ONCE, 1 dose, On Tue04/25/24 at 1530, Routine [facility] methocarbam oL (ROBAXIN) tablet 1,000 mg 04-25 19:45: 00 04-25 20:36 :00 No 1000mg 1,000 mg, Oral, ONCE, 1 dose, On Tue04/25/24 at 1445, RONALDO [facility] naproxen 500 mg EC tablet 04-25 00:00: 00 Yes [id number] 500mg Take 1 tablet by mouth 2 (two) times daily as needed for Pain (scale 4-6) for up to 20 doses. [facility] methocarbam oL 750 mg tablet 04-25 00:00: 00 Yes [id number] 750mg Take 1 tablet by mouth 4 (four) times daily as needed for Pain (scale 7-10) for up to 20 doses. [facility] hydrALAZINE (APRESOLINE ) tablet 25 mg 01-25 03:15: 00 01-25 02:48 :00 No 25mg 25 mg, Oral, ONCE NOW, 1 dose, On Tue01/24/23 at 2215, RONALDO [facility] losartan-hy drochloroth iazide 100-25 mg per tablet 01-24 23:06: 00 Yes 1{tbl} Take 1 tablet by mouth in the morning. [facility] losartan-hy drochloroth iazide 100-25 mg per tablet 01-24 00:00: 00 01-24 00:00 :00 No [id number] 1{tbl} Take 1 tablet by mouth in the morning. [facility] iopamidol (ISOVUE 370-500 mL) injection 100 mL 12-22 03:10: 00 12-22 03:00 :00 No [id number] 100mL 100 mL, Intravenou s, ONCE, 1 dose, On Tue12/21/22 at 2215, Routine [facility] labetaloL (NORMODYNE) injection 20 mg 12-22 02:00: 00 12-22 01:45 :00 No 20mg 20 mg, Slow IV Push, ONCE, 1 dose, On Tue12/21/22 at 2100, Routine [facility] benzonatate 100 mg capsule 12-21 00:00: 00 Yes [id number] 100mg Take 1 capsule by mouth 3 (three) times daily as needed for Cough. [facility] codeine-gua ifenesin 10-100 mg/5 mL oral solution 12-21 00:00: 00 12-29 04:59 :00 No [id number] 10mL Take 10 mL by mouth every 6 (six) hours as needed for Cough for up to 7 days. Indication s: acute pain [facility] Vital Signs Vital Name Observation Time Observation Value Comments S ource Systolic blood pressure 2024-04-25 21:00:00 167 mm[Hg] [place] [facility] Diastolic blood pressure 2024-04-25 21:00:00 92 mm[Hg] [facility] Heart rate 2024-04-25 21:00:00 81 /min [facility] Respiratory rate 2024-04-25 21:00:00 16 /min [facility] Oxygen saturation in Arterial blood by Pulse oximetry 2024-04-25 21:00:00 100 /min [facility] Body temperature 2024-04-25 19:02:00 36.61 Tea [facility] Body height 2024-04-25 19:00:00 167.6 cm [facility] Body weight 2024-04-25 19:00:00 104.327 kg [facility] BMI 2024-04-25 19:00:00 37.12 kg/m2 [facility] Systolic blood pressure 2023-01-25 04:29:50 149 mm[Hg] [facility] Diastolic blood pressure 2023-01-25 04:29:50 97 mm[Hg] [facility] Heart rate 2023-01-25 04:29:50 80 /min [facility] Respiratory rate 2023-01-25 04:29:50 20 /min [facility] Oxygen saturation in Arterial blood by Pulse oximetry 2023-01-25 04:29:50 99 /min [facility] Body temperature 2023-01-25 01:09:00 37 Tea [facility] Body weight 2023-01-25 01:09:00 113.399 kg [facility] BMI 2023-01-25 01:09:00 40.35 kg/m2 [facility] Systolic blood pressure 2022-12-22 03:59:00 114 mm[Hg] [facility] Diastolic blood pressure 2022-12-22 03:59:00 65 mm[Hg] [facility] Heart rate 2022-12-22 03:59:00 83 /min [facility] Respiratory rate 2022-12-22 03:59:00 14 /min [facility] Oxygen saturation in Arterial blood by Pulse oximetry 2022-12-22 03:59:00 98 /min [facility] Body temperature 2022-12-21 23:34:00 36.83 Tea [facility] Body weight 2022-12-21 23:34:00 108.863 kg [facility] BMI 2022-12-21 23:34:00 38.74 kg/m2 [facility] Procedures Procedure Date / Time Performed Performing Clinicia n Source XR CHEST 2 VW 2023-01-25 02:55:00 Rodolfo Mckeon [facility] TROPONIN I 2023-01-25 02:42:00 Rodolfo Mckeon [facility] BASIC METABOLIC PANEL (NA, K, CL, CO2, GLUCOSE, BUN, CREATININE, CA) 2023-01-25 02:42:00 Rodolfo Mckeon [facility] CBC WITH DIFF 2023-01-25 02:42:00 Rodolfo Mckeon [facility] N-TERMINAL PRO-BNP 2023-01-25 02:42:00 Rodolfo Mckeon [facility] CONSENT/REFUSAL FOR DIAGNOSIS AND TREATMENT 2023-01-25 01:00:39 Doctor Unassigned, [place] [facility] EKG-12 LEAD 2022-12-22 04:42:45 Rodolfo Mckeon [facility] URINALYSIS 2022-12-22 03:21:00 Rodolfo Mckeon [facility] N-TERMINAL PRO-BNP 2022-12-22 01:34:00 Rodolfo Mckeon [facility] EXTRA TUBE LT. BLUE 2022-12-22 01:34:00 Rodolfo Mckeon [facility] MAGNESIUM 2022-12-22 01:34:00 Rodolfo Mckeon [facility] TROPONIN I 2022-12-22 01:34:00 Rodolfo Mckeon [facility] COMP. METABOLIC PANEL (24231) 2022-12-22 01:34:00 Rodolfo Mckeon [facility] CBC WITH DIFF 2022-12-22 01:34:00 Rodolfo Mckeon [facility] CONSENT/REFUSAL FOR DIAGNOSIS AND TREATMENT 2022-12-21 23:15:05 Doctor Unassigned, [place] [facility] Encounters Start Date/Time End Date/Time Encounter Type Admission Type Attending Clinicians Care Facility Care Department Encounter ID Source 2024-05-09 00:00:00 2024-05-09 10:38:00 Letter (Out) Campaigns, Generic Provider Campaigns, Generic Provider [facility] [id number] [facility] 2024-04-25 14:03:00 2024-04-25 16:21:00 Emergency X AMINAH, SARATH BURR, SARATH [facility] ERT [id number] [facility] 2024-04-25 14:03:00 2024-04-25 16:21:00 Emergency Sarath Burr [facility] [id number] [id number] [id number] [facility] 2023-08-19 13:13:57 2023-08-19 13:13:57 Outpatient SFA SFA [id number] Vladimir Vergara 2023-08-10 15:08:35 2023-08-10 15:08:35 Outpatient SFA SFA [id number] Vladimir Vergara 2023-08-01 08:58:03 2023-08-01 08:58:[address] [facility] [id number] Vladimir Vergara 2023-07-09 00:00:00 2023-07-09 00:00:00 Outpatient [email or web address]_Ka diyala_S [facility] [id number] [facility] 2023-03-29 14:28:53 2023-03-29 14:28:53 Outpatient SFA SFA [id number] Vladimir Vergara 2023-03-28 13:17:45 2023-03-28 13:17:45 Outpatient SFA SFA [id number] Vladimir Block Jai 2023-03-24 09:53:38 2023-03-24 09:53:38 Outpatient SFA SFA [id number] Vladimir Vergara 2023-03-21 14:55:39 2023-03-21 14:55:[address] [facility] [id number] Vladimir Vergara 2023-01-24 20:11:00 2023-01-24 23:34:00 Emergency X RODOLFO MCKEON [facility] ERT [id number] [facility] 2023-01-24 20:11:00 2023-01-24 23:34:00 [facility] [id number] [id number] [id number] [facility] 2022-12-21 18:35:00 2022-12-21 23:52:00 Emergency X RODOLFO MCKEON [facility] ERT [id number] [facility] 2022-12-21 18:35:00 2022-12-21 23:52:00 Emergency MikeRodolfo camargo [facility] [id number] [id number] [facility] Results Test Description Test Time Test Comments Results Result Co mments Source LIPID [id number] 03:35:43* Test Item Value Reference Range Interpretation Comme nts CHOLESTEROL (test code = 2210) 235 MG/DL <200 H TRIGLYCERIDES (test code = 2232) 95 MG/DL <150 HDL CHOLESTEROL (test code = 2220) 63 MG/DL >39 CALC LDL CHOL (test code = 2237) 152 MG/DL <100 H NOTE: CALCULATED LDL IS BASED ON URBANO-VIVAR METHOD WHICHINCLUDES ADJUSTABLE TRIGLYCERIDE:VLDL CHOLESTEROL RATIO.THIS FACTOR VARIES BY MEASURED TRIGLYCERIDE AND NON-HDLCHOLESTEROL CONCENTRATIONS WITH INCREASED CALCULATED LDL SEENIN HIGHER TRIGLYCERIDE OR LOWER NON-HDL SPECIMENS. FOR MOREINFORMATION, SEE CLIENT ANNOUNCEMENT AT [email or web address] RISK RATIO LDL/HDL (test code = 2238) 2.41 RATIO <3.22 TROPONIN [id number] 02:12:08* Test Item Value Reference Range Interpretation Comme nts TROPONIN I (test code = 2536561638) 0.003 ng/mL <=0.034 LUIS MANUEL (test code = LUIS MANUEL) [...] patient's use of biotin. Lab Interpretation (test code = 98330-3) [id number] 02:12:08* Test Item Value Reference Range Interpretation Comme [facility] NT-proBNP (test code = 9867691770) 17 pg/mL <=125 LUIS MANUEL (test code = LUIS MANUEL) Biotin has been reported to cause a negative bias, interpret results relative to patient's use of biotin. Lab Interpretation (test code = 36378-9) [facility]OLIC PAN[facility] (67533)2022-12-22 02:03:24* Test Item Value Reference Range Interpretation Comme nts NA (test code = 4126627041) 137 mmol/L 135-145 K (test code = 9051817240) 4.2 mmol/L 3.5-5.0 CL (test code = 7779112101) 102 mmol/L 98-108 CO2 TOTAL (test code = 2889257540) 30 mmol/L 23-31 AGAP (test code = 3278976527) 5 2-16 BUN (test code = 8850783177) 13 mg/dL 7-23 GLUCOSE (test code = 4330886553) 100 mg/dL 70-110 CREATININE (test code = 6868521956) 0.62 mg/dL 0.50-1.04 TOTAL BILI (test code = 2364568615) 0.5 mg/dL 0.1-1.1 CALCIUM (test code = 8016645781) 9.2 mg/dL 8.6-10.6 T PROTEIN (test code = 1064861928) 7.0 g/dL 6.3-8.2 ALBUMIN (test code = 0066644650) 4.0 g/dL 3.5-5.0 ALK PHOS (test code = 6458854954) 114 U/L 34-122 ALTv (test code = 1742-6) 26 U/L 5-35 AST(SGOT) (test code = 1510539697) 23 U/L 13-40 eGFR (test code = 4129999953) 98.2 mL/min/1.73m2 LUIS MANUEL (test code = LUIS MANUEL) [...] or urine or abnormalities in imaging tests). [facility] 02:03:24* Test Item Value Reference Range Interpretation Comme nts MAGNESIUM (test code = 3485074816) 2.3 mg/dL 1.7-2.4 Lab Interpretation (test cod e = 61091-7) Normal [facility] WITH [id number] 01:53:24* Test Item Value Reference Range Interpretation Comme nts WBC (test code = 6690-2) 13.50 See_Comment H [Automated messa ge] The system which generated this result transmitted reference range: 4.30 - 11.10 10*3/?L. The reference range was not used to interpret this result as normal/abnormal. RBC (test code = 789-8) 4.32 See_Comment [Automated messa ge] The system which generated this result transmitted reference range: 3.93 - 5.25 10*6/?L. The reference range was not used to interpret this result as normal/abnormal. HGB (test code = 718-7) 12.5 g/dL 11.6-15.0 HCT (test code = 4544-3) 38.7 % 35.7-45.2 MCV (test code = 787-2) 89.6 fL 80.6-95.5 MCH (test code = 785-6) 28.9 pg 25.9-32.8 MCHC (test code = 786-4) 32.3 g/dL 31.6-35.1 RDW-SD (test code = 62891-2) 48.4 fL 39.0-49.9 RDW-CV (test code = 788-0) 14.7 % 12.0-15.5 PLT (test code = 777-3) 253 See_Comment [Automated messa ge] The system which generated this result transmitted reference range: 166 - 358 10*3/?L. The reference range was not used to interpret this result as normal/abnormal. MPV (test code = 25569-6) 9.5 fL 9.5-12.9 NRBC/100 WBC (test code = 1588506482) 0.0 See_Comment [Automated [employer] ssage] The system which generated this result transmitted reference range: 0.0 - 10.0 /100 WBCs. The reference range was not used to interpret this result as normal/abnormal. NRBC x10^3 (test code = 4429836672) See_Comment [Automated messa ge] The system which generated this result transmitted reference range: 10*3/?L. The reference range was not used to interpret this result as normal/abnormal. GRAN MAT (NEUT) % (test code = 770-8) 63.6 % IMM GRAN % (test code = 5411363187) 0.40 % LYMPH % (test code = 736-9) 25.1 % MONO % (test code = 5905-5) 9.3 % EOS % (test code = 713-8) 1.1 % BASO % (test code = 706-2) 0.5 % GRAN MAT x10^3(ANC) (test code = 0425921279) 8.58 10*3/uL 1.88-7.09 H IMM GRAN x10^3 (test code = 1346375450) 0.05 10*3/uL 0.00-0.06 LYMPH x10^3 (test code = 731-0) 3.39 10*3/uL 1.32-3.29 H MONO x10^3 (test code = 742-7) 1.26 10*3/uL 0.33-0.92 H EOS x10^3 (test code = 711-2) 0.15 10*3/uL 0.03-0.39 BASO x10^3 (test code = 704-7) 0.07 10*3/uL 0.01-0.07 Lab Interpretation (test code = 79720-0) Abnormal [facility] Notes Date/Time Note Provider Source 2024-04-25 16:20:33 Cal Coe symptoms have improved and has been provided with discharge instructions, home care instructions, and follow up information; verbalized understanding and denies new or worsening symptoms. No distress or new findings during discharge assessment; escorted out of the department via ed staff. Dave Ho RN [facility] 2024-04-25 14:24:16 Cal Coe room 143/143 is in no evident distress with even and unlabored respirations; skin is warm, dry, and normal for ethnicity; mentation is developmentally appropriate. Education provided including: call light location and use, fall precautions, dietary restrictions, plan of care with time approximations, care team, and pain management. [facility] 2024-04-25 13:59:53 Cal Coe is a 63 year old female presents ambulatory c/o pulled muscle in right leg and soreness x 8 days. Pt reports her pain is 10/10 and has been taking aleve for it w/o relief. Pt gait even and steady, no shortening or abnormal rotation noted, movement spontaneous and equal. Pt also reports she wants someone to listen to her heart sounds to check for murmur. (-) BT, hx HTN. Pt resp e/u on RA. Pt to room for evalv Jana Richardson RN [facility]"
--- NOTE | 2024-05-17 14:32 | RAD REPORT ---
EXAM DESCRIPTION: US - Extremity Venous Uni Ltd - 05/17/2024 1:44 pm CLINICAL HISTORY: Swelling COMPARISON: 06/11/2018. TECHNIQUE: Real-time sonographic evaluation of the right lower extremity deep venous system was perf ormed. FINDINGS: Normal compressibility, flow augmentation, phasic flow and spontaneous flow is identified in the right lower extremity deep venous system. No intraluminal filling defects seen. IMPRESSION: No DVT in the right lower extremity.
--- NOTE | 2024-05-17 14:37 | EDPHYS ---
Physician Documentation [facility] Name: Thais Coe Age: 63 yrs Sex: Female : 1960 Arrival Date: 05/17/2024 Time: 11:59 Bed 10 Private MD: ED Physician Mayra Heredia HPI: 05/17 14:04 This 63 yrs old Black Female presents to ER via Ambulatory with complaints of Leg Pain. 3 14:04 63-year-old female with history of asthma, hypertension, diabetes now presents to the 3 ED with right posterior knee pain extending proximally and laterally. Patient states it is worse when she climbs stairs and has been going on for greater than 1 week. She denies any direct trauma, numbness or tingling, or any other symptoms at this time. Review of systems negative for headache, neck pain, chest pain, shortness of breath abdominal pain, vomiting, diarrhea, syncope, near syncope, focal neurological deficit, other extremity pain, joint swelling, or any other signs or symptoms on ROS at this time.. Historical: - Allergies: 12:40 Amoxicillin; dd2 - PMHx: 12:40 Asthma; Hypertension; Diabetes mellitus; dd2 - PSHx: 12:40 None; dd2 - Immunization history:: Adult Immunizations unknown. - Infectious Disease History:: Denies. - Social history:: Smoking status: Patient denies any tobacco usage or history of. ROS: 14:05 Constitutional: Negative for fever, chills, and weight loss, Eyes: Negative for injury, sp3 pain, redness, and discharge, ENT: Negative for injury, pain, and discharge, Neck: Negative for injury, pain, and swelling, Cardiovascular: Negative for chest pain, palpitations, and edema, Respiratory: Negative for shortness of breath, cough, wheezing, and pleuritic chest pain, Abdomen/GI: Negative for abdominal pain, nausea, vomiting, diarrhea, and constipation, Back: Negative for injury and pain, Skin: Negative for injury, rash, and discoloration, Neuro: Negative for headache, weakness, numbness, tingling, and seizure, Psych: Negative for depression, anxiety, suicide ideation, homicidal ideation, and hallucinations, Allergy/Immunology: Negative for hives, rash, and allergies, Endocrine: Negative for neck swelling, polydipsia, polyuria, polyphagia, and marked weight changes, Hematologic/Lymphatic: Negative for swollen nodes, abnormal bleeding, and unusual bruising, 14:05 All other systems are negative, Exam: 14:05 Constitutional: This is a well developed, well nourished patient who is awake, alert, sp3 and in no acute distress. Head/Face: Normocephalic, atraumatic. Eyes: Pupils equal round and reactive to light, extra-ocular motions intact. Lids and lashes normal. Conjunctiva and sclera are non-icteric and not injected. Cornea within normal limits. Periorbital areas with no swelling, redness, or edema. Neck: Trachea midline, no thyromegaly or masses palpated, and no cervical lymphadenopathy. Supple, full range of motion without nuchal rigidity, or vertebral point tenderness. No Meningismus. Chest/axilla: Normal chest wall appearance and motion. Nontender with no deformity. No lesions are appreciated. Cardiovascular: Regular rate and rhythm with a normal S1 and S2. No gallops, murmurs, or rubs. Normal PMI, no JVD. No pulse deficits. Respiratory: Lungs have equal breath sounds bilaterally, clear to auscultation and percussion. No rales, rhonchi or wheezes noted. No increased work of breathing, no retractions or nasal flaring. Abdomen/GI: Soft, non-tender, with normal bowel sounds. No distension or tympany. No guarding or rebound. No evidence of tenderness throughout. Back: No spinal tenderness. No costovertebral tenderness. Full range of motion. Skin: Warm, dry with normal turgor. Normal color with no rashes, no lesions, and no evidence of cellulitis. Neuro: Awake and alert, GCS 15, oriented to person, place, time, and situation. Cranial nerves II-XII grossly intact. Motor strength 5/5 in all extremities. Sensory grossly intact. Cerebellar exam normal. Normal gait. Psych: Awake, alert, with orientation to person, place and time. Behavior, mood, and affect are within normal limits. 14:05 Musculoskeletal/extremity: Patient has mild pain to the popliteal fossa extending on lateral collateral ligament. Vital Signs: 12:37 BP 147 / 85; Pulse 73; Resp 16; Temp 97.1; Pulse Ox 100% on R/A; dd2 MDM: 12:50 Patient medically screened. sp3 14:16 Data reviewed: vital signs, nurses notes. Data reviewed: radiologic studies. ED course: sp3 63-year-old female with right popliteal fossa and lateral leg pain. Differential diagnosis includes muscle strain, DVT, Man's cyst, collateral ligament inflammation, among others. Will obtain ultrasound and if negative discharge patient home on NSAID and follow-up to PCP.. 14:35 ED course: Ultrasound negative for DVT or other abnormality. Will safely discharge sp3 patient home on NSAID at this time with follow-up to PCP.. 05/17 13:16 Order name: US Extremity Venous Unilateral Ltd; Complete Time: 14:35 sp3 Administered Medications: No medications were administered Disposition Summary: 05/17/24 14:36 Discharge Ordered Notes: Location: Home sp3 Condition: Stable sp3 Diagnosis - Lateral collateral ligament inflammation sp3 Followup: sp3 - With: Private Physician - When: Upon discharge from the Emergency Department - Reason: Continuance of care Discharge Instructions: - Discharge Summary Sheet sp3 - Lateral Collateral Knee Ligament Sprain sp3 Forms: - Medication Reconciliation Form sp3 - Antibiotic Education sp3 - Prescription Opioid Use sp3 - Patient Portal Instructions sp3 - Leadership Thank You Letter sp3 Prescriptions: - Diclofenac Sodium 75 mg Oral Tablet Sustained Release - take 1 tablet ORAL route 2 times per day; 30 tablet; Refills: 0, Product sp3 Selection Permitted Signatures: Dispatcher [employer] Mayra Gill MD MD sp3 NATHANIEL POLANCO RN RN dd2
--- NOTE | 2024-05-17 14:37 | ER ---
Nurse's Notes [facility] Name: Thais Ceo Age: 63 yrs Sex: Female : 1960 Arrival Date: 05/17/2024 Time: 11:59 Bed 10 Private MD: Diagnosis: Lateral collateral ligament inflammation Presentation: 05/17 12:37 Chief complaint: Patient states: right leg pain all the way up the back side x 5 days, dd2 taking aleve, muscle pills, and everything and nothing has helped. Coronavirus screen: At this time, the client does not indicate any symptoms associated with coronavirus-19. Ebola Screen: No symptoms or risks identified at this time. Initial Sepsis Screen: Does the patient meet any 2 criteria? No. Patient's initial sepsis screen is negative. Does the patient have a suspected source of infection? No. Patient's initial sepsis screen is negative. Risk Assessment: Do you want to hurt yourself or someone else? Patient reports no desire to harm self or others. Onset of symptoms is unknown. 12:37 Method Of Arrival: Ambulatory dd2 12:37 Acuity: KIMBERLEE 4 dd2 Triage Assessment: 12:40 General: Appears in no apparent distress. Behavior is calm, cooperative, appropriate dd2 for age. Pain: Complains of pain in right leg. Historical: - Allergies: 12:40 Amoxicillin; dd2 - PMHx: 12:40 Asthma; Hypertension; Diabetes mellitus; dd2 - PSHx: 12:40 None; dd2 - Immunization history:: Adult Immunizations unknown. - Infectious Disease History:: Denies. - Social history:: Smoking status: Patient denies any tobacco usage or history of. Screenin:45 [facility] ED Fall Risk Assessment (Adult) History of falling in the last 3 months, aa5 including since admission No falls in past 3 months (0 pts) Confusion or Disorientation No (0 pts) Intoxicated or Sedated No (0 pts) Impaired Gait No (0 pts) Mobility Assist Device Used No (0 pt) Altered Elimination No (0 pt) Score/Fall Risk Level 0 - 2 = Low Risk Oriented to surroundings, Maintained a safe environment, Educated pt \T\ family on fall prevention, incl call for assistance when getting out of bed. Abuse screen: Denies threats or abuse. Nutritional screening: No deficits noted. Tuberculosis screening: No symptoms or risk factors identified. Assessment: 12:45 General: Appears comfortable, Behavior is calm, cooperative. Pain: Complains of pain in aa5 right hamstring and posterior aspect of right knee Pain currently is 8 out of 10 on a pain scale. Quality of pain is described as tender, Pain began 4-5 days ago Is intermittent, Aggravated by increased activity, repositioning, movement. Neuro: Level of Consciousness is awake, alert, obeys commands, Oriented to person, place, time, situation. Cardiovascular: Patient's skin is warm and dry. Respiratory: Airway is patent Respiratory effort is even, unlabored, Respiratory pattern is regular, symmetrical. GI: No signs and/or symptoms were reported involving the gastrointestinal system. : No signs and/or symptoms were reported regarding the genitourinary system. EENT: No signs and/or symptoms were reported regarding the EENT system. Derm: Skin is dry, Skin is normal, Skin temperature is warm. Musculoskeletal: Range of motion: intact in all extremities. Injury Description: Denies any injuries or falls. 14:15 Reassessment: Awaiting US results . Neuro: Level of Consciousness is awake, alert, aa5 obeys commands, Oriented to person, place, time, situation. Respiratory: Airway is patent Respiratory effort is even, unlabored, Respiratory pattern is regular, symmetrical. Derm: Skin is dry, Skin is normal, Skin temperature is warm. Vital Signs: 12:37 BP 147 / 85; Pulse 73; Resp 16; Temp 97.1; Pulse Ox 100% on R/A; dd2 ED Course: 12:05 Patient arrived in ED. mg5 12:34 Mayra Heredia MD is Attending Physician. sp3 12:40 Triage completed. dd2 12:40 Arm band placed on right wrist. Patient placed in an exam room, on a stretcher, on dd2 pulse oximetry, Patient notified of wait time. 12:45 Patient has correct armband on for positive identification. Bed in low position. Call aa5 light in reach. Side rails up X 1. Adult w/ patient. 13:15 Debra العلي, RN is Primary Nurse. aa5 13:46 US Extremity Venous Unilateral Ltd In Process Unspecified. EDMS Administered Medications: No medications were administered Medication: 13:30 VIS not applicable for this client. aa5 Outcome: 14:36 Discharge ordered by MD. elizondo 14:54 Patient left the ED. aa5 Signatures: Dispatcher [employer] Debra Gaytan RN RN aa5 Mayra Heredia MD MD sp3 Deborah Sarmiento mg5 NATHANIEL POLANCO RN RN dd2
[2024-05-17 15:37] VITALS: BP 147/85; TEMP 97.1; O2SAT 100
== END 2024-05-17 14:54 | disposition home or self-care (01) ==
LOC: ER 11:59
DX: M24.29 Disorder of ligament, other specified site (principal)
CPT/HCPCS: 93971; 99282

== ENCOUNTER 2024-11-15 08:11 | Emergency (ER) | payer OTHER ==
--- OUTSIDE RECORDS SUMMARY | 2024-11-15 08:14 | XMS REPORT | Continuity of Care Document ---
Author Name Unknown Address [address] [facility] [address] [place] [address] [facility] [place] Address [address] [facility] [address] [place] [address] Care Team Providers Care Chief Digital Officer Name Role Phone Juan Gee Primary Care Physician [phone] Cristiana Bailey Attending Clinician [phone] Jennifer Gómez MD Attending Clinician Campaigns, Generic Provider Attending Clinician Unavailable SARATH BOSE Attending Clinician Unavailable SARATH BOSE Attending Clinician Unavailable Sarath Maharaj Attending Clinician [phone] [email or web address]_S Attending Clinician UnavailRODOLFO Pardo Attending Clinician Unavailable Rodolfo Mckeon MD Attending Clinician [phone] SARATH BOSE Admitting Clinician Unavailable EL_GCBZW_Kaazraa_S Admitting Clinician UnavailRODOLFO Pardo Admitting Clinician Unavailable Payers Payer Name Policy Type Policy Number Effective Date Expirati on Date Source [employer] [id number] 2015 00:00:00 Allergies, Adverse Reactions, Alerts Allergy Name Allergy Type Status Severity Reaction(s) Onset Date Inactive Date Treating Clinician Comments Source NO KNOWN ALLERGIE S Drug Class Active [facility] Social History Social Habit Start Date Stop Date Quantity Comments Source [facility] intake 2024-04-25 00:00:00 2024-04-25 00:00:00 Ex-drinker (finding) [facility] History of Social function 2024-04-25 00:00:00 2024-04-25 00:00:00 [facility] Exposure to SARS-CoV-2 (event) 2023-01-14 00:00:00 2023-01-24 20:07:00 Not sure [facility] Tobacco use and exposure 2022-12-21 00:00:00 2022-12-21 00:00:00 Smokeless tobacco non-user [facility] Alcohol intake 2022-12-21 00:00:00 2022-12-21 00:00:00 Ex-drinker (finding) [facility] Sex assigned at 1960 00:00:00 1960 00:00:00 [facility] Smoking Status Start Date Stop Date Source Never smoked tobacco [facility] Medications Ordered Medication Name Filled Medication Name Start Date Stop Date Current Medication? Ordering Clinician Indication Dosage Frequency Signature (SIG) Comments Components Source KCL (KLOR-CON M20) tablet 40 mEq 2023-09 09:30: 00 08-31 09:37 :00 No 40meq 40 mEq, Oral, ONCE, 1 dose, On Tue08/31/24 at 0330, RONALDO [facility] azithromyci n (ZITHROMAX) tablet 500 mg 2023-09 09:30: 00 08-31 09:32 :00 No 500mg 500 mg, Oral, ONCE, 1 dose, On Tue08/31/24 at 0330, RONALDO, Reason for Anti-Infec tive: Documented Infection, Documented Infection Site: Respirator y, Duration of Therapy: Once (ED) [facility] iopamidol (ISOVUE 370-500 mL) injection 85 mL 2023-09 09:30: 00 08-31 09:30 :00 No [id number] 85mL 85 mL, Intravenou s, ONCE, 1 dose, On Tue08/31/24 at 0330, Routine [facility] acetaminoph en (TYLENOL) tablet 1,000 mg 2023-09 08:30: 00 08-31 08:44 :00 No 1000mg 1,000 mg, Oral, ONCE, 1 dose, On Tue08/31/24 at 0230, Routine [facility] ketorolac (TORADOL) injection 15 mg 2023-09 06:15: 00 08-31 06:30 :00 No 15mg 15 mg, Intramuscu lar, ONCE, 1 dose, On Tue08/31/24 at 0015, RONALDO [facility] bromphenira mine-pseudo ephedrine-D M -10 mg/5 mL syrup 2023-09 00:00: 00 Yes [id number] 5mL Take 5 mL by mouth 4 (four) times daily as needed for Congestion /Allergies . [facility] albuterol 2.5 mg /3 mL (0.083 %) nebulizer solution 2023-09 00:00: 00 Yes [id number] 2.5mg Inhale 3 mL every 4 (four) hours. May also nebulize one extra every 6 hours. [facility] Nebulizer & Compressor For Neb Aruna 2023-09 00:00: 00 Yes [id number] Use as directed [facility] predniSONE 20 mg tablet 2023-09 00:00: 00 Yes [id number] 60mg Take 3 tablets by mouth every morning. [facility] albuterol 90 mcg/actuati on inhaler 2023-09 00:00: 00 Yes [id number] 2{puff} Inhale 2 Puffs every 4 (four) hours as needed for Wheezing or Shortness of Breath. [facility] azithromyci n (ZITHROMAX) 500 mg tablet 2023-09 00:00: 00 Yes [id number] 500mg Take 1 tablet by mouth in the morning. [facility] losartan-hy drochloroth iazide 100-25 mg per tablet 2023-09 2-20 00:00: 00 Yes [id number] 1{tbl} Take 1 tablet by mouth in the morning. [facility] naproxen (NAPROSYN) tablet 500 mg 04-25 20:30: 00 04-25 20:36 :00 No 500mg 500 mg, Oral, ONCE, 1 dose, On Tue04/25/24 at 1530, Routine [facility] methocarbam oL (ROBAXIN) tablet 1,000 mg 04-25 19:45: 00 04-25 20:36 :00 No 1000mg 1,000 mg, Oral, ONCE, 1 dose, On Tue04/25/24 at 1445, RONALDO [facility] naproxen 500 mg EC tablet 04-25 00:00: 00 Yes [id number] 500mg Take 1 tablet by mouth 2 (two) times daily as needed for Pain (scale 4-6) for up to 20 doses. [facility] methocarbam oL 750 mg tablet 04-25 00:00: 00 Yes [id number] 750mg Take 1 tablet by mouth 4 (four) times daily as needed for Pain (scale 7-10) for up to 20 doses. [facility] hydrALAZINE (APRESOLINE ) tablet 25 mg 01-25 03:15: 00 01-25 02:48 :00 No 25mg 25 mg, Oral, ONCE NOW, 1 dose, On Tue01/24/23 at 2215, RONALDO [facility] losartan-hy drochloroth iazide 100-25 mg per tablet 01-24 23:06: 00 08-31 00:00 :00 No 1{tbl} Take 1 tablet by mouth in the morning. [facility] losartan-hy drochloroth iazide 100-25 mg per tablet 01-24 00:00: 00 Yes [id number] 1{tbl} Take 1 tablet by mouth in the morning. [facility] iopamidol (ISOVUE 370-500 mL) injection 100 mL 12-22 03:10: 00 12-22 03:00 :00 No [id number] 100mL 100 mL, Intravenou s, ONCE, 1 dose, On Tue12/21/22 at 2215, Routine [facility] labetaloL (NORMODYNE) injection 20 mg 12-22 02:00: 00 12-22 01:45 :00 No 20mg 20 mg, Slow IV Push, ONCE, 1 dose, On Tue12/21/22 at 2100, Routine [facility] benzonatate 100 mg capsule 12-21 00:00: 00 Yes [id number] 100mg Take 1 capsule by mouth 3 (three) times daily as needed for Cough. [facility] codeine-gua ifenesin 10-100 mg/5 mL oral solution 12-21 00:00: 00 12-29 04:59 :00 No [id number] 10mL Take 10 mL by mouth every 6 (six) hours as needed for Cough for up to 7 days. Indication s: acute pain [facility] Vital Signs Vital Name Observation Time Observation Value Comments S ource Body temperature 2024-08-31 09:40:45 36.61 Tea [facility] Systolic blood pressure 2024-08-31 09:40:00 168 mm[Hg] [facility] Diastolic blood pressure 2024-08-31 09:40:00 109 mm[Hg] [facility] Heart rate 2024-08-31 09:40:00 83 /min [facility] Respiratory rate 2024-08-31 09:40:00 19 /min [facility] Oxygen saturation in Arterial blood by Pulse oximetry 2024-08-31 09:40:00 97 /min [facility] Body height 2024-08-31 06:06:00 167.6 cm [facility] Body weight 2024-08-31 06:06:00 109.226 kg [facility] BMI 2024-08-31 06:06:00 38.87 kg/m2 [facility] Systolic blood pressure 2024-04-25 21:00:00 167 mm[Hg] [facility] Diastolic blood pressure 2024-04-25 21:00:00 92 mm[Hg] [facility] Heart rate 2024-04-25 21:00:00 81 /min [facility] Respiratory rate 2024-04-25 21:00:00 16 /min [facility] Oxygen saturation in Arterial blood by Pulse oximetry 2024-04-25 21:00:00 100 /min [facility] Body temperature 2024-04-25 19:02:00 36.61 Tea [facility] Body weight 2024-04-25 19:00:00 104.327 kg [facility] BMI 2024-04-25 19:00:00 37.12 kg/m2 [facility] Body height 2024-04-25 19:00:00 167.6 cm [facility] Systolic blood pressure 2023-01-25 04:29:50 149 mm[Hg] [facility] Diastolic blood pressure 2023-01-25 04:29:50 97 mm[Hg] [facility] Heart rate 2023-01-25 04:29:50 80 /min [facility] Respiratory rate 2023-01-25 04:29:50 20 /min [facility] Oxygen saturation in Arterial blood by Pulse oximetry 2023-01-25 04:29:50 99 /min [facility] Body temperature 2023-01-25 01:09:00 37 Tea [facility] Body weight 2023-01-25 01:09:00 113.399 kg [facility] BMI 2023-01-25 01:09:00 40.35 kg/m2 [facility] Systolic blood pressure 2022-12-22 03:59:00 114 mm[Hg] [facility] Diastolic blood pressure 2022-12-22 03:59:00 65 mm[Hg] [facility] Heart rate 2022-12-22 03:59:00 83 /min [facility] Respiratory rate 2022-12-22 03:59:00 14 /min [facility] Oxygen saturation in Arterial blood by Pulse oximetry 2022-12-22 03:59:00 98 /min [place] [facility] Body temperature 2022-12-21 23:34:00 36.83 Tea [facility] Body weight 2022-12-21 23:34:00 108.863 kg [facility] BMI 2022-12-21 23:34:00 38.74 kg/m2 [facility] Procedures Procedure Date / Time Performed Performing Clinicia n Source CT THORAX W CONTRAST 2024-08-31 08:40:14 Dora Montoya [facility] TROPONIN I 2024-08-31 07:50:00 Cristiana Montoya [facility] BASIC METABOLIC PANEL (NA, K, CL, CO2, GLUCOSE, BUN, CREATININE, CA) 2024-08-31 07:50:00 Cristiana Montoya [facility] CBC WITH DIFF 2024-08-31 07:50:00 Cristiana [facility]oya [facility] XR CHEST 2 VW 2024-08-31 06:48:31 [facility] INFLUENZA A/B RSV COVID NAAT 2024-08-31 06:13:00 Cristiana Montoya [facility] XR CHEST 2 VW 2023-01-25 02:55:00 Rodolfo Mckeon [facility] TROPONIN I 2023-01-25 02:42:00 Rodolfo Mckeon [facility] BASIC METABOLIC PANEL (NA, K, CL, CO2, GLUCOSE, BUN, CREATININE, CA) 2023-01-25 02:42:00 Rodolfo Mckoen [facility] CBC WITH DIFF 2023-01-25 02:42:00 Rodolfo Mckeon [facility] N-TERMINAL PRO-BNP 2023-01-25 02:42:00 Rodolfo Mckeon [facility] CONSENT/REFUSAL FOR DIAGNOSIS AND TREATMENT 2023-01-25 01:00:39 Doctor Unassigned, [place] [facility] EKG-12 LEAD 2022-12-22 04:42:45 Rodolfo Mckeon [facility] URINALYSIS 2022-12-22 03:21:00 Rodolfo Mckeon [facility] MAGNESIUM 2022-12-22 01:34:00 Rodolfo Mckeon [facility] TROPONIN I 2022-12-22 01:34:00 Rodolfo Mckeon [facility] COMP. METABOLIC PANEL (89048) 2022-12-22 01:34:00 Rodolfo Mckeon [facility] CBC WITH DIFF 2022-12-22 01:34:00 Rodolfo Mckeon [facility] N-TERMINAL PRO-BNP 2022-12-22 01:34:00 Rodolfo Mckeon [facility] EXTRA TUBE LT. BLUE 2022-12-22 01:34:00 Rodolfo Mckeon [facility] CONSENT/REFUSAL FOR DIAGNOSIS AND TREATMENT 2022-12-21 23:15:05 Doctor Unassigned, [place] [facility] Encounters Start Date/Time End Date/Time Encounter Type Admission Type Attending [facility] Care Department Encounter ID Source 2024-08-31 00:11:00 2024-08-31 03:51:00 Emergency Cristiana Montoya Kristen Diora [facility] 1..840.114 350.1.13.10 4.2.7.2.686 [id number] [facility] 2024-05-09 00:00:00 2024-05-09 10:38:00 Letter (Out) Campaigns, Generic Provider Campaigns, Generic Provider [facility] ..840.114 350.1.13.10 4.2.7.2.686 [id number] [facility] 2024-04-25 14:03:00 2024-04-25 16:21:00 Emergency SARATH SONG JOHNNA [facility] ERT [id number] [facility] 2024-04-25 14:03:00 2024-04-25 16:21:00 Emergency Sarath Bose [facility] 1..840.114 350.1.13.10 4.2.7.2.686 [id number] [facility] 2023-08-19 13:13:57 2023-08-19 13:13:57 Outpatient SFA S[facility] [id number] Vladimir Vergara 2023-08-10 15:08:35 2023-08-10 15:08:[address] [facility] [id number] Vladimir Vergara 2023-08-01 08:58:03 2023-08-01 08:58:[address] [facility] [id number] Vladimir Vergara 2023-07-09 00:00:00 2023-07-09 00:00:00 Outpatient GC_GCBZW_Ka diyala_S [facility] [id number] [facility] 2023-03-29 14:28:53 2023-03-29 14:28:[address] [facility] [id number] Vladimir Vergara 2023-03-28 13:17:45 2023-03-28 13:17:[address] [facility] [id number] Vladimir Vergara 2023-03-24 09:53:38 2023-03-24 09:53:[address] [facility] [id number] Vladimir Vergara 2023-03-21 14:55:39 2023-03-21 14:55:[address] [facility] [id number] Vladimir Vergara 2023-01-24 20:11:00 2023-01-24 23:34:00 Emergency X RODOLFO MCKEON [facility] ERT [id number] [facility] 2023-01-24 20:11:00 2023-01-24 23:34:00 Emergency Rodolof Mckeon [facility] 1..840.114 350.1.13.10 4.2.7.2.686 [id number] [facility] 2022-12-21 18:35:00 2022-12-21 23:52:00 Emergency X RODOLFO MCKEON [facility] ERT [id number] [facility] 2022-12-21 18:35:00 2022-12-21 23:52:00 Emergency Rodolfo Mckeon [facility] 1.2.840.114 350.1.13.10 [id number] [id number] [facility] Results Test Description Test Time Test Comments Results Result Comments Source CT Thorax w contrast 2024-08-13 0 09:21:35 Ordering physician: CRISTIANA MONTOYA INDICATION: Respiratory illness COMPARISON: Chest radiograph dated 08/31/2024, chest CT dated 12/21/2022 TECHNIQUE: Axial images of the chest were performed following theadministration of intravenous contrast. Images were reformatted in thecoronal and sagittal plane. CT scan was performed according to ALARA (aslow as reasonably achievable) policy. FINDINGS: The visualized thyroid gland is within normal limits. There is nothoracic aortic aneurysm or dissection. 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 No pathologically enlarged mediastinal or hilarlymph nodes are appreciated. The heart is normal in size, withoutpericardial effusion. No acute process is appreciated the visualized upper abdomen. There isthickening of the [place] of the central airways. Bone windows through thechest demonstrate no acute fracture or osseous destructive lesion. [facility] XR Chest 2 vw 2024-08-13 0 07:23:55 ORDERING PHYSICIAN: SOPHIE MONTOYA CLINICAL HISTORY: Cough, chest tightness TECHNIQUE: Two views of the chest COMPARISON: None available. FINDINGS: The cardiac silhouette is within normal limits. Lungs are clear. Bilateralhilar fullness is identified. There is also fullness within the rightparatracheal region. Lymphadenopathy is in the differential diagnosis.Chest CT is recommended for better characterization. Osseous structures are normal. [facility] LIPID [id number] 03:35:43* Test Item Value Reference Range Interpretation [...] SPECIMENS. FOR MOREINFORMATION, SEE CLIENT ANNOUNCEMENT AT [email or web address] RISK RATIO LDL/HDL (test code = 2238) 2.41 RATIO <3.22 TROPONIN [id number] 02:12:08* Test Item Value Reference Range Interpretation Comme nts TROPONIN I (test code = 5304260956) 0.003 ng/mL <=0.034 LUIS MANUEL (test code [...] of biotin. Lab Interpretation (test code = 79564-5) Normal [facility] [id number] 02:12:08* Test Item Value Reference Range Interpretation Comme nts NT-proBNP (test code = 8694360440) 17 pg/mL <=125 LUIS MANUEL (test code = LUIS MANUEL) Biotin has been reported to cause a negative bias, interpret results relative to patient's use of biotin. Lab Interpretation (test code = 32638-6) Normal [facility] MET[facility]OLIC PANEL (85159)2022-12-22 02:03:24* Test Item Value Reference Range Interpretation Comme nts NA (test code = 8231706463) 137 mmol/L 135-145 K (test code = 7446777224) 4.2 mmol/L 3.5-5.0 CL (test code = 5286214976) 102 mmol/L 98-108 CO2 TOTAL (test code = 1366359816) 30 mmol/L 23-31 AGAP (test code = 8093893318) 5 2-16 BUN (test code = 6572627927) 13 mg/dL 7-23 GLUCOSE (test code = 6855195507) 100 mg/dL 70-110 CREATININE (test code = 4957789058) 0.62 mg/dL 0.50-1.04 TOTAL BILI (test code = 8860309587) 0.5 mg/dL 0.1-1.1 CALCIUM (test code = 0948323314) 9.2 mg/dL 8.6-10.6 T PROTEIN (test code = 4676152222) 7.0 g/dL 6.3-8.2 ALBUMIN (test code = 8144155967) 4.0 g/dL 3.5-5.0 ALK PHOS (test code = 7600046011) 114 U/L 34-122 ALTv (test code = 1742-6) 26 U/L 5-35 AST(SGOT) (test code = 1980914018) 23 U/L 13-40 eGFR (test code = 9641063711) 98.2 mL/min/1.73m2 LUIS MANUEL (test code = [...] or urine or abnormalities in imaging tests). [facility] 02:03:24* Test Item Value Reference Range Interpretation Comme nts MAGNESIUM (test code = 1616070546) 2.3 mg/dL 1.7-2.4 Lab Interpretation (test cod e = 09783-8) Normal [facility] WITH [id number] 01:53:24* Test Item Value Reference Range Interpretation Comme nts WBC (test code = 6690-2) 13.50 See_Comment H [Automated [employer]] The system which generated this result transmitted reference range: 4.30 - 11.10 10*3/?L. The reference range was not used to interpret this result as normal/abnormal. RBC (test code = 789-8) 4.32 See_Comment [Automated [employer]] The system which generated this result transmitted [...] 32.3 g/dL 31.6-35.1 RDW-SD (test code = 26161-7) 48.4 fL 39.0-49.9 RDW-CV (test code = 788-0) 14.7 % 12.0-15.5 PLT (test code = 777-3) 253 See_Comment [Automated [employer]] The system which generated this result transmitted reference range: 166 - 358 10*3/?L. The reference range was not used to interpret this result as normal/abnormal. MPV (test code = 25053-7) 9.5 fL 9.5-12.9 NRBC/100 WBC (test code = 3026844501) 0.0 See_Comment [Automated me ssage] The system which generated this result transmitted reference range: 0.0 - 10.0 /100 WBCs. The reference range was not used to interpret this result as normal/abnormal. NRBC x10^3 (test code = 7095590111) See_Comment [Automated messa ge] The system which generated this result transmitted reference range: 10*3/?L. The reference range was not used to interpret this result as normal/abnormal. GRAN MAT (NEUT) % (test code = 770-8) 63.6 % IMM GRAN % (test code = 1361844327) 0.40 % LYMPH % (test code = 736-9) 25.1 % MONO % (test code = 5905-5) 9.3 % EOS % (test code = 713-8) 1.1 % BASO % (test code = 706-2) 0.5 % GRAN MAT x10^3(ANC) (test code = 8662498807) 8.58 10*3/uL 1.88-7.09 H IMM GRAN x10^3 (test code = 2722628253) 0.05 10*3/uL 0.00-0.06 LYMPH x10^3 (test code = 731-0) 3.39 10*3/uL 1.32-3.29 H MONO x10^3 (test code = 742-7) 1.26 10*3/uL 0.33-0.92 H EOS x10^3 (test code = 711-2) 0.15 10*3/uL 0.03-0.39 BASO x10^3 (test code = 704-7) 0.07 10*3/uL 0.01-0.07 Lab Interpretation (test code = 56934-5) Abnormal [facility] Notes Date/Time Note Provider Source 2024-08-31 03:50:24 Awake, alert oriented X4, respiratory even and unlabored,skin w/d color appropriate for race, moves all ext well, pt encouraged to follow up with pcp and or return as needed. Pt given printed and verbal discharge instructions regarding acute cough, body aches, fever in adult, bronchitis, hypokalemia, and secondary hypertension. Patient verbalized understanding and signature obtained, patient denies any other concerns. Prescriptions provided. Discussed antibiotic therapy and to take until all completed unless adverse reaction occurs - if occurs, discontinue medication and follow up with pcp/seek medical attention. Advised to seek medical attention for new/prolonged/worsening of symptoms. No adverse reaction to meds given in ER noted upon discharge. Pt ambulated to the lobby with steady gait. 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 VISION WRITER Asha De Leon RN [facility] 2024-04-25 16:20:33 Cal Rodriguez symptoms have improved and has been provided with discharge instructions, home care instructions, and follow up information; verbalized understanding and denies new or worsening symptoms. No distress or new findings during discharge assessment; escorted out of the department via ed staff. Dave Ho RN [facility] 2024-04-25 14:24:16 Cal Rodriguez room 143/143 is in no evident distress with even and unlabored respirations; skin is warm, dry, and normal for ethnicity; mentation is developmentally appropriate. Education provided including: call light location and use, fall precautions, dietary restrictions, plan of care with time approximations, care team, and pain management. [facility] 2024-04-25 13:59:53 Cal Rodriguez is a 63 year old female presents [...] to room for evalv Jana Richardson RN [facility]"
[2024-11-15] MEDS ORDERED: MORPHINE 4 MG/ML SYR ONE (08:42)
[2024-11-15] MEDS ORDERED: ONDANSETRON 4 MG/2 ML VIAL ONE (08:42)
[2024-11-15] MEDS ORDERED: FAMOTIDINE 20 MG/2 ML VIAL IV ONE (08:42)
[2024-11-15] MEDS ORDERED: NA CHLORIDE 0.9% 1,000 ML ONE (08:42)
--- NOTE | 2024-11-15 08:54 | RAD REPORT ---
EXAM: Right upper quadrant ultrasound. CLINICAL HISTORY: Abdominal pain COMPARISON: None FINDINGS: A gallstone is not seen. Gallbladder wall not thickened. Biliary tree normal caliber IMPRESSION: No significant abnormalities displayed
[2024-11-15 09:01] LABS: Absolute Lymphocytes (CBC) 1.9 K/uL (0.7-4.9); Absolute Monocytes 0.5 K/uL (0.1-1.3); Basophils % 0.5 % (0-1.3); Eosinophils % 0.2 % (0-4.4); Hematocrit 39.3 % (36.0-45.0); Hemoglobin 12.9 g/dL (12.0-15.0); Lymphocytes % 22.2 % (15.3-44.8); MCH 28.8 pg (27.0-35.0); MCHC 32.9 g/dL (32.0-36.0); MCV 87.7 fL (80-100); MPV 7.9 fL (7.6-11.3); Monocytes % 6.1 % (3.3-12.3); Nucleated Red Blood Cells % 0.1 % (0-0); Platelets 308 thou/uL (152-406); RBC Red Blood Cell Count 4.49 M/uL (3.86-4.86)
[2024-11-15 09:07] LABS: PT Prothrombin Time 14.3 SECONDS (10.0-13.0); Protime INR 1.27
[2024-11-15 09:20] LABS: Calcium Oxalate Crystals- Ur Few /HPF (None Seen); Specific Gravity > 1.030 (1.005-1.030); Sqamous Epithelial <5 /HPF (None Seen); Urine Bacteria <20 /HPF (<20); Urine Bilirubin NEGATIVE (Negative); Urine Blood Trace (Negative); Urine Clarity Extremely Turbid (Clear); Urine Color Yellow (Yellow); Urine Culture Reflex Order NOT NEEDED; Urine Glucose NEGATIVE (Negative); Urine Ketones NEGATIVE (Negative); Urine Microscopic Reflex YN ORDER UMIC; Urine Mucus 2+ /HPF (None Seen); Urine Nitrite NEGATIVE (Negative); Urine Protein TRACE (Negative); Urine Urobilinogen Normal (Normal); Urine WBC <5 /HPF (<5); Urine pH 5.5 (5.0-7.0)
[2024-11-15 09:23] LABS: ALT/SGPT 33 U/L (13-56); AST/SGOT 20 U/L (15-37); Albumin 3.3 g/dL (3.4-5.0); Albumin/Globulin Ratio 0.7 (1.1-1.8); Alkaline Phosphatase 136 U/L (45-117); BUN Blood Urea Nitrogen 14 mg/dL (7-18); Bicarbonate 27 mEq/L (21-32); Bilirubin Total 0.3 mg/dL (0.2-1.0); Globulin 4.5 g/dL (2.3-3.5); Glomerular Filtration Rate 93 ml/min (=/>90); Glucose Level 109 mg/dL (74-106); Lipase 19 U/L (13-75); Magnesium 2.3 mg/dL (1.6-2.4); NT PRO-BNP 16 pg/mL (<125); Protein, Total 7.8 g/dL (6.4-8.2); Sodium Level 139 mEq/L (136-145); Troponin High Sensitivity 3.3 pg/mL (<58.9)
[2024-11-15 09:27] LABS: Bilirubin Direct < 0.2 mg/dL (0-0.2); Bilirubin Indirect, Calculated 0.1 mg/dL (0.2-0.8)
--- NOTE | 2024-11-15 09:58 | RAD REPORT ---
Procedure: Chest Single View HISTORY: Abdominal pain COMPARISON: 2022 FINDINGS: The lungs appear clear of acute infiltrate. No significant pleural effusion noted. The heart is normal size. IMPRESSION: No acute abnormality is displayed.
--- NOTE | 2024-11-15 09:58 | RAD REPORT ---
EXAMINATION: CT ABDOMEN AND PELVIS WITH CONTRAST CLINICAL INDICATION: Abdominal pain TECHNIQUE: CT abdomen and pelvis was performed, after the administration of 100 cc Isovue-300.. Sagit cydney and coronal reconstructions were obtained. One or more of the following dose reduction techniques were used: Automated exposure control, adjustment of the mA and kV according to patient si ze, and iterative reconstruction. Unless otherwise specified, incidental findings do not require dedicated imaging follow-up. AX9297. Oral contrast was not given which limits evaluation of bowel and appendix. COMPARISON: .None FINDINGS: Liver, spleen, pancreas, adrenals and kidneys appear unremarkable No evidence of diverticulitis. Normal appendix. Hysterectomy. No adnexal mass Fluid within nondilated bowel : IMPRESSION: Fluid within nondilated bowel may indicate an enteritis
--- NOTE | 2024-11-15 12:41 | ER ---
Nurse's Notes [facility] Name: Thais Coe Age: 64 yrs Sex: Female : 1960 Arrival Date: 11/15/2024 Time: 08:11 Bed 3 Private MD: Diagnosis: Vomiting;Diarrhea, unspecified;Hypokalemia;Abdominal pain, Generalized Presentation: 11/15 08:26 Chief complaint: Patient states: Tuesday my back started hurting and I was nauseated and iw threw up , still nauseous and vomiting and has mid back pain. Coronavirus screen: At this time, the client does not indicate any symptoms associated with coronavirus-19. Ebola Screen: No symptoms or risks identified at this time. Initial Sepsis Screen: Does the patient meet any 2 criteria? No. Patient's initial sepsis screen is negative. Does the patient have a suspected source of infection? No. Patient's initial sepsis screen is negative. Risk Assessment: Do you want to hurt yourself or someone else? Patient reports no desire to harm self or others. Onset of symptoms was November 10, 2024. 08:26 Method Of Arrival: Ambulatory iw 08:26 Acuity: KIMBERLEE 3 iw Triage Assessment: 08:30 General: Appears in no apparent distress. uncomfortable, obese, Behavior is bp cooperative, appropriate for age, anxious. Pain: Complains of pain in back. EENT: No deficits noted. Neuro: No deficits noted. Cardiovascular: Rhythm is sinus rhythm. Respiratory: Airway is patent Respiratory effort is even, unlabored. GI: Reports nausea, vomiting. : No signs and/or symptoms were reported regarding the genitourinary system. Derm: No deficits noted. Musculoskeletal: No deficits noted. Historical: - Allergies: 08:27 Amoxicillin; iw - Home Meds: 08:27 None [Active]; iw - PMHx: 08:27 Asthma; diabetes mellitus; Hypertension; iw - Immunization history:: Adult Immunizations not up to date, Client reports receiving the 2nd dose of the Covid vaccine, Pneumococcal vaccine is up to date. - Infectious Disease History:: Denies. - Social history:: Smoking status: Patient denies any tobacco usage or history of. Screenin:35 [facility] ED Fall Risk Assessment (Adult) History of falling in the last 3 months, bp including since admission No falls in past 3 months (0 pts) Confusion or Disorientation No (0 pts) Intoxicated or Sedated No (0 pts) Impaired Gait No (0 pts) Mobility Assist Device Used No (0 pt) Altered Elimination No (0 pt) Score/Fall Risk Level 0 - 2 = Low Risk Oriented to surroundings. Abuse screen: Denies threats or abuse. Denies injuries from another. Nutritional screening: No deficits noted. Tuberculosis screening: No symptoms or risk factors identified. Assessment: 08:30 General: Appears in no apparent distress. uncomfortable, obese, Behavior is bp cooperative, appropriate for age, anxious. 09:33 Reassessment: Patient appears in no apparent distress at this time. Patient is alert, bp oriented x 3, equal unlabored respirations, skin warm/dry/pink. 11:00 Reassessment: Patient appears in no apparent distress at this time. Patient and/or db family updated on plan of care and expected duration. Pain level reassessed. Patient is alert, oriented x 3, equal unlabored respirations, skin warm/dry/pink. Neuro: Level of Consciousness is awake, alert, Oriented to person, place, time, situation. Respiratory: Airway is patent Respiratory effort is even, unlabored, Respiratory pattern is regular, symmetrical. 12:16 Reassessment: Patient appears in no apparent distress at this time. Patient and/or db family updated on plan of care and expected duration. Pain level reassessed. Patient is alert, oriented x 3, equal unlabored respirations, skin warm/dry/pink. 13:13 GI: Bowel sounds present X 4 quads. Abd is soft X 4 quads. bp Vital Signs: 08:26 BP 108 / 85; Pulse 86; Resp 18; Temp 97.2; Pulse Ox 99% on R/A; Weight 104.33 kg; iw Height 5 ft. 6 in. ; Pain 9/10; 09:33 BP 102 / 68; Pulse 74; Resp 16; Pulse Ox 96% ; bp 10:00 BP 112 / 79; Pulse 80; Resp 16; Pulse Ox 94% ; db 11:00 BP 116 / 77; Pulse 69; Resp 16; Pulse Ox 94% on R/A; db 12:00 BP 121 / 80; Pulse 65; Resp 18; Pulse Ox 94% on R/A; db 12:45 BP 106 / 87; Pulse 75; Resp 16; Pulse Ox 95% ; db 08:26 Body Mass Index 37.12 (104.33 kg, 167.64 cm) iw 08:26 Pain Scale: Adult iw ED Course: 08:15 Patient arrived in ED. [id number] 08:21 Werner Greer MD is Attending Physician. nate 08:27 Triage completed. iw 08:28 Arm band placed on. iw 08:34 Lars Villalobos, RN is Primary Nurse. bp 08:50 Initial lab(s) drawn, by me, sent to lab. Urine collected: clean catch specimen, clear, bp EKG done, by ED staff, reviewed by Werner Greer MD. Inserted saline lock: 20 gauge in left wrist, using aseptic technique. Blood collected. Flushed with 10 mL NS. 08:51 US Abdomen Limited In Process Unspecified. EDMS 09:06 XRAY Chest (1 view) In Process Unspecified. EDMS 09:35 Patient has correct armband on for positive identification. bp 09:47 CT Abd/Pelvis - IV Contrast Only In Process Unspecified. EDMS 13:13 No provider procedures requiring assistance completed. IV discontinued, intact, bp bleeding controlled, No redness/swelling at site. Pressure dressing applied. Administered Medications: 08:48 Drug: NS 0.9% IV 1000 ml IV at 1 bolus Per protocol; to be given as a bolus over 60 bp minutes Route: IV; Rate: 1 bolus; Site: left wrist; 13:14 Follow up: IV Status: Completed infusion bp 08:48 Drug: Famotidine IVP 20 mg IVP once; dilute with 10 mL 0.9% NaCl; give over 2 minutes bp Route: IVP; Site: left wrist; 13:14 Follow up: Response: No adverse reaction bp 08:48 Drug: morphine IVP or IV 2 mg IVP once over 4 mins Route: IVP; Infused Over: 4 mins; bp Site: left wrist; 13:14 Follow up: Response: No adverse reaction bp 08:48 Drug: Ondansetron IVP 4 mg IVP once; over 2 minutes Route: IVP; Site: left wrist; bp 13:14 Follow up: Response: No adverse reaction bp 08:49 Drug: morphine IVP or IV 2 mg IVP once over 4 mins Route: IVP; Infused Over: 4 mins; bp Site: left wrist; 13:14 Follow up: Response: No adverse reaction bp 12:45 Drug: Potassium PO Effervescent Tablet 50 mEq PO once; dissolve in 4 ounces of water or bp juice Route: PO; 13:14 Follow up: Response: No adverse reaction bp Medication: 13:14 VIS not applicable for this client. bp Outcome: 12:40 Discharge ordered by . nate 13:13 Discharged to home ambulatory, bp 13:13 Condition: stable 13:13 Discharge instructions given to patient, Instructed on discharge instructions, follow up and referral plans. medication usage, Demonstrated understanding of instructions, follow-up care, medications, Prescriptions given X 3, 13:18 Patient left the ED. db Signatures: Dispatcher [employer] EDMS Werner Greer MD MD cha Williams, Irene, RN RN iw Peltier, Brian, RN RN Latonia Leal RN RN Alicia Dc [id number]
--- NOTE | 2024-11-15 12:41 | EDPHYS ---
Physician Documentation [facility] Name: Thais Coe Age: 64 yrs Sex: Female : 1960 Arrival Date: 11/15/2024 Time: 08:11 Bed 3 Private MD: ED Physician Werner Greer HPI: 11/15 12:31 This 64 yrs old Black Female presents to ER via Ambulatory with complaints of Abdominal nate Pain, Back Pain, Nausea/Vomiting/Diarrhea. 12:31 The patient presents with pain that is chronic. nate Historical: - Allergies: 08: Amoxicillin; iw - Home Meds: 08:27 None [Active]; iw - PMHx: 08:27 Asthma; diabetes mellitus; Hypertension; iw - Immunization history:: Adult Immunizations not up to date, Client reports receiving the 2nd dose of the Covid vaccine, Pneumococcal vaccine is up to date. - Infectious Disease History:: Denies. - Social history:: Smoking status: Patient denies any tobacco usage or history of. ROS: 12:31 Constitutional: Negative for fever, chills, and weight loss, Eyes: Negative for injury, nate pain, redness, and discharge, ENT: Negative for injury, pain, and discharge, Neck: Negative for injury, pain, and swelling, Cardiovascular: Negative for chest pain, palpitations, and edema, Respiratory: Negative for shortness of breath, cough, wheezing, and pleuritic chest pain, Back: Negative for injury and pain, : Negative for injury, bleeding, discharge, and swelling, MS/Extremity: Negative for injury and deformity, Skin: Negative for injury, rash, and discoloration, Neuro: Negative for headache, weakness, numbness, tingling, and seizure, Psych: Negative for depression, anxiety, suicide ideation, homicidal ideation, and hallucinations, Allergy/Immunology: Negative for hives, rash, and allergies, Endocrine: Negative for neck swelling, polydipsia, polyuria, polyphagia, and marked weight changes, Hematologic/Lymphatic: Negative for swollen nodes, abnormal bleeding, and unusual bruising, 12:31 Abdomen/GI: Positive for abdominal pain, nausea and vomiting, diarrhea, Exam: 12:31 Constitutional: This is a well developed, well nourished patient who is awake, alert, nate and in no acute distress. Head/Face: Normocephalic, atraumatic. Eyes: Pupils equal round and reactive to light, extra-ocular motions intact. Lids and lashes normal. Conjunctiva and sclera are non-icteric and not injected. Cornea within normal limits. Periorbital areas with no swelling, redness, or edema. ENT: Nares patent. No nasal discharge, no septal abnormalities noted. Tympanic membranes are normal and external auditory canals are clear. Oropharynx with no redness, swelling, or masses, exudates, or evidence of obstruction, uvula midline. Mucous membranes moist. Neck: Trachea midline, no thyromegaly or masses palpated, and no cervical lymphadenopathy. Supple, full range of motion without nuchal rigidity, or vertebral point tenderness. No Meningismus. Chest/axilla: Normal chest wall appearance and motion. Nontender with no deformity. No lesions are appreciated. Cardiovascular: Regular rate and rhythm with a normal S1 and S2. No gallops, murmurs, or rubs. Normal PMI, no JVD. No pulse deficits. Respiratory: Lungs have equal breath sounds bilaterally, clear to auscultation and percussion. No rales, rhonchi or wheezes noted. No increased work of breathing, no retractions or nasal flaring. Abdomen/GI: Soft, non-tender, with normal bowel sounds. No distension or tympany. No guarding or rebound. No evidence of tenderness throughout. Back: No spinal tenderness. No costovertebral tenderness. Full range of motion. Skin: Warm, dry with normal turgor. Normal color with no rashes, no lesions, and no evidence of cellulitis. MS/ Extremity: Pulses equal, no cyanosis. Neurovascular intact. Full, normal range of motion., bilateral aka Neuro: Awake and alert, GCS 15, oriented to person, place, time, and situation. Cranial nerves II-XII grossly intact. Motor strength 5/5 in all extremities. Sensory grossly intact. Cerebellar exam normal. Normal gait. Psych: Awake, alert, with orientation to person, place and time. Behavior, mood, and affect are within normal limits. 12:31 ECG was reviewed by the Attending Physician. Vital Signs: 08:26 BP 108 / 85; Pulse 86; Resp 18; Temp 97.2; Pulse Ox 99% on R/A; Weight 104.33 kg; iw Height 5 ft. 6 in. ; Pain 9/10; 09:33 BP 102 / 68; Pulse 74; Resp 16; Pulse Ox 96% ; bp 10:00 BP 112 / 79; Pulse 80; Resp 16; Pulse Ox 94% ; db 11:00 BP 116 / 77; Pulse 69; Resp 16; Pulse Ox 94% on R/A; db 12:00 BP 121 / 80; Pulse 65; Resp 18; Pulse Ox 94% on R/A; db 12:45 BP 106 / 87; Pulse 75; Resp 16; Pulse Ox 95% ; db 08:26 Body Mass Index 37.12 (104.33 kg, 167.64 cm) iw 08:26 Pain Scale: Adult iw MDM: 08:21 Medical Screening Exam initiated nate 12:34 Differential diagnosis: Cholelithiasis chronic back pain, cholecystitis, nate Cholelithiasis, non-specific abd pain, pancreatitis, Peptic Ulcer Disease, Pyelonephritis, Ureterolithiasis. Data reviewed: vital signs, nurses notes, lab test result(s), EKG, radiologic studies, CT scan, plain films. Consideration of Admission/Observation Escalation of care including admission/observation considered. I considered the following discharge prescriptions or medication management in the emergency department Medications were administered in the Emergency Department. See MAR. Independent interpretation of the following test(s) in the Emergency Department CT Scan: My interpretation is ct abd/pelvis. Test considered but Not performed: MRI: no mrcp. Historians other than the Patient: patient well informed. Care significantly affected by the following chronic conditions: Diabetes, Hypertension, asthma. Counseling: I had a detailed discussion with the patient and/or guardian regarding the historical points, exam findings, and any diagnostic results supporting the discharge/admit diagnosis, lab results, radiology results, the need for outpatient follow up, for definitive care, a family practitioner. 11/15 08:23 Order name: Basic Metabolic Panel; Complete [facility]: 12[facility] 08:23 Order name: CBC with Diff; Complete Time: 12:26 [facility] 11/15 08:23 Order name: LFT's; Complete Time: 12:26 [facility] 11/15 08:23 Order name: Magnesium; Complete Time: 12:26 [facility] 11/15 08:23 Order name: NT PRO-BNP; Complete Time: 12:26 [facility] 11/15 08:23 Order name: PT-INR; Complete Time: 12:26 [facility] 11/15 08:23 Order name: Troponin HS; Complete Time: 12:26 [facility] 11/15 08:23 Order name: Lipase; Complete Time: 12:26 [facility] 11/15 08:23 Order name: Urinalysis w/ reflexes; Complete Time: 12:26 [facility] 11/15 08:23 Order name: XRAY Chest (1 view); Complete Time: 12:26 [facility] 11/15 08:23 Order name: CT Abd/Pelvis - IV Contrast Only; Complete Time: 12:26 [facility] 11/15 08:23 Order name: US Abdomen Limited; Complete Time: 12:26 [facility] 11/15 08:23 Order name: Cardiac monitoring; Complete Time: 09:19 [facility] 11/15 08:23 Order name: EKG - Nurse/Tech; Complete Time: 09:19 [facility] 11/15 08:23 Order name: IV Saline Lock; Complete Time: 08:48 [facility] 11/15 08:23 Order name: Labs collected and sent; Complete Time: 08:48 [facility] 11/15 08:23 Order name: O2 Per Protocol; Complete Time: 08:48 [facility] 11/15 08:23 Order name: O2 Sat Monitoring; Complete Time: 08:48 [facility] 11/15 12:30 Order name: PO challenge; Complete Time: 12:53 [facility] EC:31 Rate is 80 beats/min. Rhythm is regular. QRS [place] is Normal. MI interval is normal. QRS nate interval is normal. QT interval is normal. No Q waves. T waves are Normal. No ST changes noted. Clinical impression: NSR w/ Non-specific ST/T Changes and No evidence of ischemia. Interpreted by me. Reviewed by me. Administered Medications: 08:48 Drug: NS 0.9% IV 1000 ml IV at 1 bolus Per protocol; to be given as a bolus over 60 bp minutes Route: IV; Rate: 1 bolus; Site: left wrist; 13:14 Follow up: IV Status: Completed infusion bp 08:48 Drug: Famotidine IVP 20 mg IVP once; dilute with 10 mL 0.9% NaCl; give over 2 minutes bp Route: IVP; Site: left wrist; 13:14 Follow up: Response: No adverse reaction bp 08:48 Drug: morphine IVP or IV 2 mg IVP once over 4 mins Route: IVP; Infused Over: 4 mins; bp Site: left wrist; 13:14 Follow up: Response: No adverse reaction bp 08:48 Drug: Ondansetron IVP 4 mg IVP once; over 2 minutes Route: IVP; Site: left wrist; bp 13:14 Follow up: Response: No adverse reaction bp 08:49 Drug: morphine IVP or IV 2 mg IVP once over 4 mins Route: IVP; Infused Over: 4 mins; bp Site: left wrist; 13:14 Follow up: Response: No adverse reaction bp 12:45 Drug: Potassium PO Effervescent Tablet 50 mEq PO once; dissolve in 4 ounces of water or bp juice Route: PO; 13:14 Follow up: Response: No adverse reaction bp Disposition Summary: 11/15/24 12:40 Discharge Ordered Notes: Location: Home nate Problem: new nate Symptoms: have improved nate Condition: Stable nate Diagnosis - Vomiting nate - Diarrhea, unspecified nate - Hypokalemia nate - Abdominal pain, Generalized nate Followup: nate - With: Private Physician - When: 2 - 3 days - Reason: Recheck today's complaints, Continuance of care, Re-evaluation by your physician Discharge Instructions: - Discharge Summary Sheet nate - Abdominal Pain, Adult nate - Food Choices to Help Relieve Diarrhea, Adult nate - Diarrhea, Adult nate - Potassium Content of Foods nate - Abdominal Pain, Adult, [id number] nate - Diarrhea, Adult, [id number] nate Forms: - Medication Reconciliation Form nate - Antibiotic Education nate - Prescription Opioid Use nate - Patient Portal [facility]ructions [facility] - [facility] You Letter [facility] Prescriptions: - ondansetron 4 mg Oral Tablet,disintegrating - take 1 tablet ORAL route every 6-8 hours for 5 days as needed for nausea and nate vomiting; 20 tablet; Refills: 0, Product Selection Permitted - Potassium Chloride 20 meq Oral Packet - take 1 packet ORAL route once daily 1 packet in 6 (six) ounces of water or nate juice; Take after meal; 14 packet; Refills: 0, Product Selection Permitted - promethazine 25 mg Oral tablet - take 1 tablet ORAL route every 6 hours As needed; 20 tablet; Refills: 0, nate Product Selection Permitted Signatures: Dispatcher [employer] Werner Gambino MD MD cha Williams, Irene, RN RN iw Lars Villalobos RN RN bp Corrections: (The following items were deleted from the chart) 08:23 08:23 BASIC METABOLIC PANEL+C.LAB.BRZ ordered. EDMS EDMS 08:23 08:23 CBC+H.LAB.BRZ ordered. EDMS EDMS 08:23 08:23 HEPATIC FUNCTION+C.LAB.BRZ ordered. EDMS EDMS 08:23 08:23 MAGNESIUM+C.LAB.BRZ ordered. EDMS EDMS 08:23 08:23 PROBNP+C.LAB.BRZ ordered. EDMS EDMS 08:23 08:23 PROTIME (+INR)+COAG.LAB.BRZ ordered. EDMS EDMS 08:23 08:23 Troponin High Sensitivity+C.LAB.BRZ ordered. EDMS EDMS 08:23 08:23 LIPASE+C.LAB.BRZ ordered. EDMS EDMS 08:23 08:23 Urinalysis+U.LAB.BRZ ordered. EDMS EDMS 08:23 08:23 Chest Single View+RAD.RAD.BRZ ordered. EDMS EDMS 08:24 08:24 Abdomen Pelvis W Con+CT.RAD.BRZ ordered. EDMS EDMS 08:24 08:24 Abdomen Limited+US.RAD.BRZ ordered. EDMS EDMS
[2024-11-15] MEDS ORDERED: POTASSIUM 25 MEQ EFFERV TAB ONE (12:59)
[2024-11-15 13:41] VITALS: TEMP 97.2
[2024-11-15 13:47] VITALS: BP 106/87; O2SAT 95
== END 2024-11-15 13:18 | disposition home or self-care (01) ==
LOC: ER 08:11
DX: E87.6 Hypokalemia (principal); R19.7 Diarrhea, unspecified; R10.84 Generalized abdominal pain
CPT/HCPCS: 96361; 93005; 85025; 81001; 80048; 36415; 83735; 85610; 80076; 84484; 83690; 83880; 74177; 71045; 76705; 96375; 96374; 99284; Q9967; J2405; J7030